=== PATIENT | male | born 1960 | race Caucasian/White ===

== ENCOUNTER 2017-03-16 11:36 | Emergency (ER) | payer OTHER ==
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
--- NOTE | 2017-03-16 12:32 | ED ---
Upper Extremity HPI - General Chief Complaint: Extremity Injury, Upper Stated Complaint: R shoulder pain Time Seen by Provider: 03/16/17 11:46 Source: patient, EMS, RN notes reviewed Mode of arrival: EMS Limitations: no limitations - History of Present Illness Initial Comments: This a 56-year-old male presents emergency Department chief complaint right shoulder pain. Patient fell 2 weeks ago. Patient states that he seen at [facility] was given coating with x-rays were negative. He has not followed up with anybody for this at this time. Patient states that he's had chronic pain in the past and has been on narcotic pain medication. Patient denies any head injury, neck pain or any other complaints at this time. - Related Data Home Medications Medication Instructions Recorded Confirmed Naproxen Sodium [Aleve] 220 mg PO BID PRN 03/16/17 03/16/17 Previous Rx's Medication Instructions Recorded Acetaminophen-Codeine 300-30mg 1 tab PO Q4H PRN #20 tablet 03/16/17 [Tylenol #3] Allergies Allergy/AdvReac Type Severity Reaction Status Date / Time No Known Allergies Allergy Verified 03/16/17 11:47 Review of Systems ROS Statement: Those systems with pertinent positive or pertinent negative responses have been documented in the HPI. ROS Other: All systems not noted in ROS Statement are negative. Past Medical History Past Medical History: Hyperlipidemia, Hypertension, Thyroid Disorder History of Any Multi-Drug Resistant Organisms: None Reported Past Surgical History: Appendectomy, Orthopedic Surgery Additional Past Surgical History / Comment(s): head injury Past Psychological History: No Psychological Hx Reported Smoking Status: Current every day smoker Past Alcohol Use History: None Reported Past Drug Use History: None Reported General Exam Limitations: no limitations General appearance: alert, in no apparent distress Head exam: Present: atraumatic, normocephalic, normal inspection Neck exam: Present: normal inspection, full ROM. Absent: tenderness, meningismus, lymphadenopathy Respiratory exam: Present: normal lung sounds bilaterally. Absent: respiratory distress, wheezes, rales, rhonchi, stridor Cardiovascular Exam: Present: regular rate, normal rhythm, normal heart sounds. Absent: systolic murmur, diastolic murmur, rubs, gallop, clicks Extremities exam: Present: other (Right shoulder patient reports some pain with range of motion, neurovascular intact no obvious deformity there is tenderness over the superior to posterior aspect. Patient's strength is equal bilaterally 5/5) Course Vital Signs 03/16/17 11:37 Temperature 96.9 F L Pulse Rate 52 L Respiratory 18 Rate Blood Pressure 140/75 O2 Sat by Pulse 99 Oximetry Medical Decision Making - Medical Decision Making 56-year-old male present emergency from for right shoulder pain. Patient does have some evidence of arthritis of the acromioclavicular joint. There is no obvious deformity no fracture. Patient is advised that he needs a follow-up with PCP or orthopedics. Return parameters were discussed. Disposition Clinical Impression: Right shoulder injury, Arthritis of right shoulder region Disposition: HOME SELF-CARE Condition: Stable Instructions: Shoulder Pain (ED) Additional Instructions: Please return to the Emergency Department if symptoms worsen or any other concerns. Prescriptions: Acetaminophen-Codeine 300-30mg [Tylenol #3] 1 tab PO Q4H PRN #20 tablet PRN Reason: pain Referrals: None,Stated [Primary Care Provider] - 1-2 days Marshall Rajput DO [STAFF PHYSICIAN] - 1-2 days Reza Purvis DO [Doctor of Osteopathic Medicine] - 1-2 days Time of Disposition: 12:32
[2017-03-16] MEDS ORDERED: IBUPROFEN 600 MG TAB PO STA (12:33)
[2017-03-16] MEDS ORDERED: Acetaminophen-Codeine 300-30mg TAB PO STA (12:33)
[2017-03-16 12:44] VITALS: BP 146/79; PULSE 54; RESP 19; TEMP 97
== END 2017-03-16 12:46 | disposition home or self-care (01) ==
LOC: EC 11:36
DX: M19.011 Primary osteoarthritis, right shoulder (principal); S49.91XD Unspecified injury of right shoulder and upper arm, subsequent encounter; F17.200 Nicotine dependence, unspecified, uncomplicated; Z79.891 Long term (current) use of opiate analgesic; W19.XXXD Unspecified fall, subsequent encounter
CPT/HCPCS: 99284

== ENCOUNTER 2017-04-09 13:00 | Emergency (ER) | payer OTHER ==
[2017-04-09 13:15] VITALS: BP 126/89; PULSE 68; RESP 18; TEMP 98.1
[2017-04-09] MEDS ORDERED: ORPHENADRINE 30 MG/ML 2 ML VIAL IM STA (13:45)
[2017-04-09] MEDS ORDERED: KETOROLAC 30 MG/ML 1 ML VIAL IM STA (13:45)
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
== END 2017-04-09 13:59 | disposition home or self-care (01) ==
LOC: EC 13:00
DX: M19.011 Primary osteoarthritis, right shoulder (principal); F17.200 Nicotine dependence, unspecified, uncomplicated
CPT/HCPCS: 99283; 96372 ×2; J2360; J1885

== ENCOUNTER → 2017-07-14 | Outpatient (CLI) | payer OTHER ==
--- NOTE | 2017-07-14 12:00 | MR ---
MRI CERVICAL SPINE: CLINICAL HISTORY: Chronic cervical radiculopathy and neck pain per order. Headaches with pain and tin gling sensation for 5 months and neck causing pain or weakness into right arm and fingers per patient . TECHNIQUE: Multiplanar, multisequence imaging of the cervical spine is performed without IV contrast. COMPARISON: MRI cervical spine dated January 05, 2014. FINDINGS: Exam is suboptimal as there is motion artifact degradation present. Sagittal images of the cervical spine show the craniocervical junction to remain within normal limits. The cervical and upp er thoracic spinal cord is normal in course, caliber, and signal. Vertebral alignment is stable and satisfactory. The vertebral body and intravertebral disk heights remain normal. Small posterior disc herniations are redemonstrated on sagittal images C3-C4 through C5-C6 level mildly effacing anterior thecal sac without significant interval change. There is mild anterior spurring lower cervical level s redemonstrated. The bone marrow signal intensity is within normal limits. Axial images show slightly more prominent blooming artifact making difficult to accurately characteri ze amount of neural foraminal narrowing. Axial images at C2-C3 level shows new left-sided uncovertebral facet degenerative change causing mild left-sided neural foraminal narrowing. Axial images at C3-C4 level show uncovertebral facet degenerative changes bilaterally with broad-base d right paracentral disc protrusion mildly effacing anterolateral thecal sac, there is likely moderat e bilateral neural foraminal narrowing at this level identified. Difficult to exclude some progressio n from prior study. Axial images at C4-C5 level small broad-based posterior disc protrusion mildly effacing anterior thec al sac, with some uncovertebral facet degenerative changes bilaterally causing mild to moderate bilat eral neural foraminal narrowing. No significant change from prior study is felt present. Axial images at C5-C6 level redemonstrate broad-based left paracentral disc protrusion with posterior spurring and uncovertebral facet degenerative changes bilaterally. There is effacement of the johanna lateral thecal sac redemonstrated. Moderate left-sided neural foraminal narrowing and mild right-side d neural foraminal narrowing there is felt present. Prior. Axial images at C6-C7 and C7-T1 levels are felt within normal limits IMPRESSION: Suboptimal study, multilevel degenerative changes are redemonstrated, some progression in findings upper cervical levels from most recent prior MRI is likely present. Most prominent findings remain present at C5-C6 level without significant interval change. Further details are noted as disc ussed above.
== END | disposition home or self-care (01) ==
LOC: RADMRIMAIN 11:05
PROVIDERS: ATTEND Family Medicine
DX: M50.11 Cervical disc disorder with radiculopathy, high cervical region (principal); M99.71 Connective tissue and disc stenosis of intervertebral foramina of cervical region; M47.22 Other spondylosis with radiculopathy, cervical region
CPT/HCPCS: 72141

== ENCOUNTER → 2017-08-18 | Outpatient (CLI) | payer OTHER ==
[2017-08-17 13:30] VITALS: BMI 30.7
[2017-08-18 12:59] VITALS: BP 124/84; PULSE 58; RESP 18
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
== END | disposition home or self-care (01) ==
LOC: PNWHC3 12:10
PROVIDERS: ATTEND Specialist
DX: G89.29 Other chronic pain (principal); M51.36 Other intervertebral disc degeneration, lumbar region; M47.816 Spondylosis without myelopathy or radiculopathy, lumbar region; M46.86 Other specified inflammatory spondylopathies, lumbar region; M47.812 Spondylosis without myelopathy or radiculopathy, cervical region; M46.82 Other specified inflammatory spondylopathies, cervical region; F17.200 Nicotine dependence, unspecified, uncomplicated; Z79.1 Long term (current) use of non-steroidal anti-inflammatories (NSAID); Z79.899 Other long term (current) drug therapy
CPT/HCPCS: 99211

== ENCOUNTER 2017-09-20 09:40 | Day surgery (SDC) | payer OTHER ==
[2017-09-15 09:23] VITALS: BMI 28.8
[~2017-09-20 09:40] MED LIST: LACTATED RINGERS 1,000 ML IV SCH
[2017-09-20] MEDS ORDERED: LIDOCAINE 1% 20 ML VIAL (10MG/ML) FOR IV START INTRADERMA ONE (10:04)
[2017-09-20 10:07] VITALS: RESP 16; TEMP 97.2
--- NOTE | 2017-09-20 10:31 | P.PCN ---
Date of Procedure: 09/20/17 Procedure(s) Performed: PREOPERATIVE DIAGNOSIS : 1- Lumbar spondylosis with Facet Arthropathy without myelopathy . 2- Lumber degenerative disc disease. 3-cervical spondylosis with cervical facet arthropathy without myelopathy 4-cervical degenerative disc disease POSTOPERATIVE DIAGNOSIS:: Same as preoperative diagnosis PROCEDURE: Diagnostic bilateral L3 -4 , L4 -5 , and L5-S1 medial branch block under fluoroscopy ANESTHESIA: Local with 1% lidocaine 6 ml , moderate sedation with intravenous Versed 2 mg and Fentanyl 100 mcg. EBL: Minimal COMPLICATION: None. IV FLUIDS: 100 mL of normal saline. PROCEDURE INDICATION: Chronic low back pain secondary to Facet arthropathy unresponsive to conservative treatment. PROCEDURE DESCRIPTION: the patient was seen and identified in the preop holding area , risks and benefits and possible complications of the procedure and alternative were discussed with the patient, and the patient agreed to proceed with the procedure and signed the consent IV was started and vital signs monitored during the procedure and fluoroscopy was used to maximize the benefit and accuracy of the needle placement, and sedation was given to decrease patient anxiety, patient was taken to the procedure room and placed in prone position vital signs monitored in the back prepped with chlorhexidine X3 then under strict sterile technique using a right oblique fluoroscopy ,the junction of the transverse process and the superior articulating process of the right L3- 4 , L4- 5, and L5-S1 vertebra which corresponding to the fluoroscopy image of the eye of the Naldo dog on the block side for the medial branches and subsequently , after local infiltration of skin and subcu tissuies with lidocaine 1% one mL at each level ,then 22- gauge Quincke-type needles , 3 needle was used , each one of them placed at the junction of the base of the transverse process and the superior articular process at the appropriate level, and the needle was advanced until the periosteum contacted, needle placement confirmed with AP oblique and lateral view and after appropriate needle placement confirmed, and after negative aspiration for heme and CSF and there was no paresthesia 1-1/2 mL of Marcaine 0.5% mixed with 20 mg Kenalog , then half mL injected at each level after negative aspiration the needle subsequently removed and the same procedure repeated for the left side at left side at L3-4, L4- 5 and L5-S1 levels. At the end of the procedure and the needles removed and a bandage applied after the skin was cleaned the cleaning solution patient taken to recovery room in stable condition and monitors in the recovery room for 20-30 minutes and discharged home in stable condition after discharge criteria met and patient will follow up with the pain clinic in 2-4 weeks
[2017-09-20 10:50] VITALS: BP 140/79; PULSE 53
[2017-09-20] MEDS ORDERED: IV FLUID CONTINUATION 1,000 ML IV ONE (10:50)
--- NOTE | 2017-09-20 11:03 | FL ---
EXAMINATION TYPE: FL guided pain mgmt statistic DATE OF EXAM: 09/20/2017 CLINICAL HISTORY: Back pain TECHNIQUE: Fluoroscopy. COMPARISON: None. FINDINGS/IMPRESSION: Fluoroscopic guidance was provided during procedure performed by Dr. Garnett. A total of 13 seconds of fluoroscopic time was utilized during the procedure and 4 spot images was a cquired demonstrating localization of the lumbar spine for bilateral facet.
== END 2017-09-20 11:14 | disposition home or self-care (01) ==
LOC: ORPAIN 09:40
PROVIDERS: ATTEND Specialist
DX: G89.29 Other chronic pain (principal); M51.36 Other intervertebral disc degeneration, lumbar region; M47.816 Spondylosis without myelopathy or radiculopathy, lumbar region; M47.812 Spondylosis without myelopathy or radiculopathy, cervical region; E03.9 Hypothyroidism, unspecified; I48.91 Unspecified atrial fibrillation
CPT/HCPCS: 64493; 64494; 64495; J2250; J3301; J3010; 99152

== ENCOUNTER 2018-04-30 12:18 | Emergency (ER) | payer OTHER ==
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
[2018-04-30 17:01] LABS: Basophils % (A) 1 %; Eosinophils # (A) 0.3 k/uL (0-0.7); Eosinophils % (A) 3 %; HGB 14.1 gm/dL (13.0-17.5); Lymphocytes # (A) 2.5 k/uL (1.0-4.8); Lymphocytes % (A) 29 %; MCH 29.8 pg (25.0-35.0); MCHC 32.8 g/dL (31.0-37.0); MCV 91.1 fL (80.0-100.0); Mean Platelet Volume 7.4; Monocytes # (A) 0.4 k/uL (0-1.0); Monocytes % (A) 4 %; Neutrophils # (A) 5.3 k/uL (1.3-7.7); Neutrophils % (A) 61 %; Platelet Count 454 k/uL (150-450); RBC 4.72 m/uL (4.30-5.90); RDW 13.7 % (11.5-15.5); WBC 8.7 k/uL (3.8-10.6)
[2018-04-30 17:23] LABS: Albumin 4.3 g/dL (3.5-5.0); Calcium 9.9 mg/dL (8.4-10.2); Potassium 4.7 mmol/L (3.5-5.1); Total Bilirubin 0.4 mg/dL (0.2-1.3); Total Protein 7.4 g/dL (6.3-8.2)
[2018-04-30 18:40] LABS: Amphetamine Screen,Urine Not Detected (NotDetected); Barbiturate Screen,Urine Not Detected (NotDetected); Benzodiazepines Screen,Urine Not Detected (NotDetected); Cocaine Screen,Urine Detected (NotDetected); Methadone Screen, Urine Not Detected (NotDetected); Opiate Screen,Urine Not Detected (NotDetected); Oxycodone Screen, Urine Not Detected (NotDetected); Phencyclidine Screen,Urine Not Detected (NotDetected); Tricyclic Antidepressant,Urine Not Detected (NotDetected); Urn Cannabinoid Scrn Detected (NotDetected)
[2018-05-02] MEDS ORDERED: ACETAMINOPHEN TAB 500 MG TAB PO STA (07:07)
[2018-05-02 08:44] VITALS: TEMP 98.7
[2018-05-02 15:48] VITALS: BP 140/76; PULSE 86; RESP 16
== END 2018-05-02 15:48 ==
LOC: EC 12:18
DX: R45.850 Homicidal ideations (principal); R45.851 Suicidal ideations; R45.1 Restlessness and agitation; R45.4 Irritability and anger; F17.200 Nicotine dependence, unspecified, uncomplicated
CPT/HCPCS: 36415; 80053; 80306; 82075; 85025; 99285

== ENCOUNTER 2018-11-29 21:18 | Emergency (ER) | payer OTHER ==
[2018-11-29 21:34] VITALS: BP 120/77; PULSE 60; RESP 18; TEMP 98.5
[2018-11-29] MEDS ORDERED: DIPH,PERTUS(ACELL)TETVAC-LF 0.5 ML VIAL IM ONE (21:37)
--- NOTE | 2018-11-29 22:01 | XR ---
EXAMINATION TYPE: XR elbow complete LT DATE OF EXAM: 11/29/2018 COMPARISON: NONE HISTORY: Elbow pain TECHNIQUE: 3 views FINDINGS: Elbow joint spaces appear normal. I see no fracture nor dislocation. There is no sign of el bow joint effusion. IMPRESSION: Negative left elbow exam.
--- NOTE | 2018-11-29 22:02 | XR ---
EXAMINATION TYPE: XR Hip Complete LT DATE OF EXAM: 11/29/2018 COMPARISON: NONE HISTORY: Hip pain TECHNIQUE: 2 views FINDINGS: I see no fracture nor dislocation. Hip joint spaces fairly normal. There is no sign of hip dysplasia. Sacroiliac joint appears normal. IMPRESSION: Normal left hip exam.
--- NOTE | 2018-11-29 22:02 | XR ---
EXAMINATION TYPE: XR knee complete LT DATE OF EXAM: 11/29/2018 COMPARISON: NONE HISTORY: Knee pain TECHNIQUE: 3 views FINDINGS: I see no fracture nor dislocation. Joint spaces are normal. There is no sign of joint effus ion. IMPRESSION: Negative left knee exam.
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
== END 2018-11-29 22:31 | disposition home or self-care (01) ==
LOC: EC 21:18
DX: S80.212A Abrasion, left knee, initial encounter (principal); S50.312A Abrasion of left elbow, initial encounter; M25.552 Pain in left hip; F17.200 Nicotine dependence, unspecified, uncomplicated; Z98.890 Other specified postprocedural states; Z23 Encounter for immunization; V18.4XXA Pedal cycle driver injured in noncollision transport accident in traffic accident, initial encounter; Y93.55 Activity, bike riding; Y92.410 Unspecified street and highway as the place of occurrence of the external cause
CPT/HCPCS: 73502; 90471; 90715; 99283

== ENCOUNTER 2019-02-01 22:56 | Emergency (ER) | payer OTHER ==
[2019-02-01 23:28] VITALS: RESP 18
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
[2019-02-02 03:27] LABS: Basophils # (A) 0.1 k/uL (0-0.2); Basophils % (A) 1 %; Eosinophils # (A) 0.3 k/uL (0-0.7); Eosinophils % (A) 3 %; HCT 37.5 % (39.0-53.0); HGB 12.7 gm/dL (13.0-17.5); Lymphocytes # (A) 4.2 k/uL (1.0-4.8); Lymphocytes % (A) 40 %; MCH 30.7 pg (25.0-35.0); MCHC 33.7 g/dL (31.0-37.0); MCV 90.9 fL (80.0-100.0); Mean Platelet Volume 7.3; Monocytes # (A) 0.5 k/uL (0-1.0); Monocytes % (A) 4 %; Neutrophils # (A) 5.3 k/uL (1.3-7.7); Neutrophils % (A) 50 %; Platelet Count 294 k/uL (150-450); RBC 4.13 m/uL (4.30-5.90); RDW 14.2 % (11.5-15.5); WBC 10.5 k/uL (3.8-10.6)
[2019-02-02 03:39] LABS: Amphetamine Screen,Urine Not Detected (NotDetected); Barbiturate Screen,Urine Not Detected (NotDetected); Benzodiazepines Screen,Urine Not Detected (NotDetected); Cocaine Screen,Urine Detected (NotDetected); Methadone Screen, Urine Not Detected (NotDetected); Opiate Screen,Urine Not Detected (NotDetected); Oxycodone Screen, Urine Not Detected (NotDetected); Phencyclidine Screen,Urine Not Detected (NotDetected); Tricyclic Antidepressant,Urine Not Detected (NotDetected); Urn Cannabinoid Scrn Detected (NotDetected)
[2019-02-02 03:59] LABS: Albumin 3.9 g/dL (3.5-5.0); Calcium 9.2 mg/dL (8.4-10.2); Total Bilirubin 0.3 mg/dL (0.2-1.3); Total Protein 6.5 g/dL (6.3-8.2)
[2019-02-02 04:25] LABS: Potassium 4.3 mmol/L (3.5-5.1)
[2019-02-02 07:01] VITALS: BP 126/82; PULSE 51; TEMP 98.7
== END 2019-02-02 10:23 ==
LOC: EC 22:56
DX: F39 Unspecified mood [affective] disorder (principal); F32.9 Major depressive disorder, single episode, unspecified; R45.851 Suicidal ideations; F17.200 Nicotine dependence, unspecified, uncomplicated; Z87.820 Personal history of traumatic brain injury
CPT/HCPCS: 36415; 80053; 80306; 82075; 85025; 99285

== ENCOUNTER 2019-03-24 23:56 | Inpatient (IN) | payer MEDICAID, OTHER ==
[2019-03-25 01:22] LABS: Amphetamine Screen,Urine Not Detected (NotDetected); Barbiturate Screen,Urine Not Detected (NotDetected); Benzodiazepines Screen,Urine Not Detected (NotDetected); Cocaine Screen,Urine Not Detected (NotDetected); Methadone Screen, Urine Not Detected (NotDetected); Opiate Screen,Urine Not Detected (NotDetected); Oxycodone Screen, Urine Not Detected (NotDetected); Phencyclidine Screen,Urine Not Detected (NotDetected); Tricyclic Antidepressant,Urine Not Detected (NotDetected); Urn Cannabinoid Scrn Detected (NotDetected)
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
[2019-03-25] MEDS ORDERED: ZIPRASIDONE 20 MG VIAL IM PRN (03:42)
[2019-03-25] MEDS ORDERED: MAG HYDROX/AL HYDROX/SIMETH 30 ML CUP PO PRN (03:42)
[2019-03-25] MEDS ORDERED: MAGNESIUM HYDROXIDE 2,400 MG/10 ML CUP PO PRN (03:42)
[2019-03-25 04:44] LABS: Appearance,Urine Clear (Clear); Bilirubin,Urine Negative (Negative); Blood,Urine Small (Negative); Color,Urine Yellow; Glucose,Urine (UA) Negative (Negative); Ketones,Urine Negative (Negative); Leukocyte Esterase,Urine Negative (Negative); Mucus,Urine Rare /hpf; Nitrite,Urine Negative (Negative); PH, Urine 5.5 (5.0-8.0); Protein,Urine Negative (Negative); RBC,Urine 10 /hpf (0-5); Specific Gravity,Urine 1.024 (1.001-1.035); Squamous Epithelial Cell,Urine <1 /hpf (0-4); Urobilinogen,Urine <2.0 mg/dL (<2.0); WBC,Urine <1 /hpf (0-5)
[2019-03-25 05:22] VITALS: BMI 25.1
[2019-03-25] MEDS: NICOTINE 14MG/24HR PATCH TRANSDERM SCH (08:44)
[2019-03-25 09:29] LABS: Basophils # (A) 0.1 k/uL (0-0.2); Basophils % (A) 1 %; Eosinophils # (A) 0.2 k/uL (0-0.7); Eosinophils % (A) 2 %; HCT 40.1 % (39.0-53.0); HGB 13.4 gm/dL (13.0-17.5); Lymphocytes # (A) 3.3 k/uL (1.0-4.8); Lymphocytes % (A) 35 %; MCHC 33.5 g/dL (31.0-37.0); MCV 92.8 fL (80.0-100.0); Monocytes # (A) 0.4 k/uL (0-1.0); Monocytes % (A) 4 %; Neutrophils # (A) 5.6 k/uL (1.3-7.7); Neutrophils % (A) 58 %; Platelet Count 372 k/uL (150-450); RBC 4.32 m/uL (4.30-5.90); RDW 12.8 % (11.5-15.5); WBC 9.7 k/uL (3.8-10.6)
[2019-03-25 09:48] LABS: Albumin 4.3 g/dL (3.5-5.0); Bilirubin, Delta 0.1 mg/dL (0.0-0.2); Bilirubin,Unconjugated 0.5 mg/dL (0.0-1.1); Calcium 9.4 mg/dL (8.4-10.2); Potassium 3.9 mmol/L (3.5-5.1); Total Bilirubin 0.6 mg/dL (0.2-1.3); Total Protein 7.2 g/dL (6.3-8.2)
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
[2019-03-25] MEDS ORDERED: BENZOCAINE/MENTHOL LOZENG 1 EACH LOZENGE MUCOUS MEM PRN (14:58)
[2019-03-25] MEDS: LORazepam 1 MG TAB PO PRN (16:11)
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
[2019-03-25] MEDS: ESCITALOPRAM 10 MG TAB PO SCH (18:00)
[2019-03-25] MEDS: MELATONIN 3 MG TABLET PO SCH (20:18)
[2019-03-25 20:27] LABS: Hemoglobin A1C 5.9 % (4.0-6.0)
[2019-03-26] MEDS: LEVOTHYROXINE 100 MCG TAB PO SCH (06:32)
[2019-03-26] MEDS: NICOTINE 14MG/24HR PATCH TRANSDERM SCH (09:08)
[2019-03-26] MEDS: ESCITALOPRAM 10 MG TAB PO SCH (09:08)
--- NOTE | 2019-03-26 15:45 | P.PN ---
Progress Note - Text Progress Note Date: 03/26/19 Over history: Patient reports he slept well last night and he did not have any carryover like he has had with the Seroquel with the melatonin. Did sign a form yesterday regarding wanting to be discharged. He does not voice any adverse psychotropic medication side effects. Mental status exam: He is alert and cooperative with the interview. His speech is fluent, not rapid or pressured. His mood seems to be stable. He denies any thoughts of harm to self or others. No evidence of psychosis or agitation. Plan: Patient will be maintained on current psychotropic medication regimen. Continue to monitor for any medication side effects and monitor regarding his response to treatment.
[2019-03-26] MEDS: LORazepam 1 MG TAB PO PRN (20:15)
[2019-03-26] MEDS: MELATONIN 3 MG TABLET PO SCH (20:15)
[2019-03-26] MEDS: ACETAMINOPHEN TAB 325 MG TAB PO PRN (20:15)
[2019-03-27] MEDS: LEVOTHYROXINE 100 MCG TAB PO SCH (06:03)
[2019-03-27] MEDS: NICOTINE 14MG/24HR PATCH TRANSDERM SCH (07:54)
[2019-03-27] MEDS: ESCITALOPRAM 10 MG TAB PO SCH (07:54)
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
--- NOTE | 2019-03-27 16:54 | US ---
EXAMINATION TYPE: US thyroid st tissue head/neck DATE OF EXAM: 03/27/2019 COMPARISON: NONE CLINICAL HISTORY: enlarged thyroid gland. GLAND SIZE: Right Lobe: 4.1 x 1.5 x 1.6 cm Overall Parenchyma: heterogenous Left Lobe: 3.7 x 1.4 x 1.1 cm Overall Parenchyma: heterogeneous Isthmus Thickness: 0.2 cm NODULES RIGHT: # of nodules measured on right: 0 LEFT: # of nodules measured on left: 0 ISTHMUS: # of nodules measured in the isthmus: 0 Bilateral neck scanned, no evidence of lymphadenopathy. IMPRESSION: There is heterogeneity in both thyroid lobes without a discrete or dominant mass. Thyroid gland not s ignificantly enlarged.
[2019-03-27] MEDS: LORazepam 1 MG TAB PO PRN (17:07)
[2019-03-27] MEDS: MELATONIN 3 MG TABLET PO SCH (21:09)
[2019-03-27] MEDS: ACETAMINOPHEN TAB 325 MG TAB PO PRN (21:10)
[2019-03-28 07:06] VITALS: BP 112/64; PULSE 51; RESP 14; TEMP 98
[2019-03-28] MEDS: NICOTINE 14MG/24HR PATCH TRANSDERM SCH (09:11)
[2019-03-28] MEDS: ESCITALOPRAM 10 MG TAB PO SCH (09:12)
[2019-03-28] MEDS: ACETAMINOPHEN TAB 325 MG TAB PO PRN ×2 (09:12→12:59)
[2019-03-28] MEDS: LORazepam 1 MG TAB PO PRN (09:12)
[2019-03-28] MEDS: LEVOTHYROXINE 100 MCG TAB PO SCH (09:12)
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
== END 2019-03-28 14:14 | disposition home or self-care (01) | DRG 880 ==
LOC: EC 23:56 → 3MHU 03-25 03:30
PROVIDERS: ADMIT Psychiatry & Neurology Psychiatry; ATTEND Psychiatry & Neurology Psychiatry
DX: F41.1 Generalized anxiety disorder (principal); E78.5 Hyperlipidemia, unspecified; F17.200 Nicotine dependence, unspecified, uncomplicated; I10 Essential (primary) hypertension; K21.9 Gastro-esophageal reflux disease without esophagitis; G89.29 Other chronic pain; E07.9 Disorder of thyroid, unspecified; M79.604 Pain in right leg; F32.9 Major depressive disorder, single episode, unspecified; Z79.899 Other long term (current) drug therapy; Z87.81 Personal history of (healed) traumatic fracture; Z90.49 Acquired absence of other specified parts of digestive tract
CPT/HCPCS: 76536; 80053; 80061; 80306; 81001; 82075; 82248; 83036; 84439; 84443; 85025; 99285

== ENCOUNTER 2019-08-02 23:32 | Emergency (ER) | payer OTHER ==
[2019-08-02 23:41] VITALS: BP 122/85; PULSE 73; RESP 18; TEMP 97.8
[2019-08-02] MEDS ORDERED: HYDROcodone/APAP 10-325MG 1 EACH TAB PO ONE (23:53)
[2019-08-02] MEDS ORDERED: LIDOCAINE 5% PATCH TOPICAL STA (23:53)
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
== END 2019-08-03 01:29 | disposition home or self-care (01) ==
LOC: EC 23:32
DX: M54.9 Dorsalgia, unspecified (principal); Z59.0 Homelessness; F17.200 Nicotine dependence, unspecified, uncomplicated
CPT/HCPCS: 99283

== ENCOUNTER 2019-08-08 22:10 | Emergency (ER) | payer OTHER ==
[2019-08-08 22:44] VITALS: BP 121/80; PULSE 68; RESP 20; TEMP 98.3
[2019-08-08] MEDS ORDERED: HYDROcodone/APAP 7.5-325MG 1 EACH TAB PO ONE (23:42)
[2019-08-08] MEDS ORDERED: KETOROLAC 30 MG/ML 1 ML VIAL IM STA (23:42)
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
== END 2019-08-09 00:10 | disposition home or self-care (01) ==
LOC: EC 22:10
DX: M54.9 Dorsalgia, unspecified (principal); G89.29 Other chronic pain; F17.200 Nicotine dependence, unspecified, uncomplicated; Z87.828 Personal history of other (healed) physical injury and trauma; Z98.890 Other specified postprocedural states
CPT/HCPCS: 96372; 99283; J1885

== ENCOUNTER 2019-09-05 00:13 | Emergency (ER) | payer OTHER ==
[2019-09-05 00:22] VITALS: BP 120/77; PULSE 80; RESP 18; TEMP 97.5
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
== END 2019-09-05 04:56 | disposition home or self-care (01) ==
LOC: EC 00:13
DX: F31.9 Bipolar disorder, unspecified (principal); F17.200 Nicotine dependence, unspecified, uncomplicated
CPT/HCPCS: 36415; 80053; 80306; 81001; 82075; 85025; 99284; 99285

== ENCOUNTER 2019-09-05 16:44 | Emergency (ER) | payer OTHER ==
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
[2019-09-05 18:52] LABS: Appearance,Urine Clear (Clear); Bilirubin,Urine Negative (Negative); Blood,Urine Small (Negative); Color,Urine Yellow; Glucose,Urine (UA) Negative (Negative); Ketones,Urine Negative (Negative); Leukocyte Esterase,Urine Small (Negative); Nitrite,Urine Negative (Negative); Protein,Urine Negative (Negative); RBC,Urine 11 /hpf (0-5); Specific Gravity,Urine 1.025 (1.001-1.035); Squamous Epithelial Cell,Urine <1 /hpf (0-4); Urobilinogen,Urine <2.0 mg/dL (<2.0); WBC,Urine 4 /hpf (0-5)
[2019-09-05 19:03] LABS: Amphetamine Screen,Urine Not Detected (NotDetected); Barbiturate Screen,Urine Not Detected (NotDetected); Benzodiazepines Screen,Urine Not Detected (NotDetected); Cocaine Screen,Urine Detected (NotDetected); Methadone Screen, Urine Not Detected (NotDetected); Opiate Screen,Urine Detected (NotDetected); Oxycodone Screen, Urine Not Detected (NotDetected); Phencyclidine Screen,Urine Not Detected (NotDetected); Tricyclic Antidepressant,Urine Not Detected (NotDetected); Urn Cannabinoid Scrn Detected (NotDetected)
[2019-09-05 21:32] LABS: Basophils # (A) 0.1 k/uL (0-0.2); Basophils % (A) 1 %; Eosinophils # (A) 0.3 k/uL (0-0.7); Eosinophils % (A) 3 %; HCT 36.3 % (39.0-53.0); Lymphocytes % (A) 40 %; MCH 29.8 pg (25.0-35.0); MCV 90.4 fL (80.0-100.0); Mean Platelet Volume 7.6; Monocytes # (A) 0.5 k/uL (0-1.0); Monocytes % (A) 6 %; Neutrophils # (A) 4.9 k/uL (1.3-7.7); Neutrophils % (A) 49 %; Platelet Count 323 k/uL (150-450); RBC 4.02 m/uL (4.30-5.90); RDW 13.1 % (11.5-15.5); WBC 9.9 k/uL (3.8-10.6)
[2019-09-05 21:36] LABS: ALT 17 U/L (4-49); AST 21 U/L (17-59); African American GFR (CKD) >90 (>60 ml/min/1.73 sqM); Albumin 3.7 g/dL (3.5-5.0); Alkaline Phosphatase 51 U/L (38-126); Anion Gap 4 mmol/L; Blood Urea Nitrogen 24 mg/dL (9-20); Calcium 8.7 mg/dL (8.4-10.2); Carbon Dioxide 26 mmol/L (22-30); Chloride 106 mmol/L (98-107); Glucose 106 mg/dL (74-99); Non-African American GFR(CKD) 79 (>60 ml/min/1.73 sqM); Potassium 4.1 mmol/L (3.5-5.1); Sodium 136 mmol/L (137-145); Total Bilirubin 0.2 mg/dL (0.2-1.3); Total Protein 6.5 g/dL (6.3-8.2)
[2019-09-05 23:24] VITALS: RESP 18
[2019-09-06 01:52] VITALS: TEMP 97.6
[2019-09-06] MEDS ORDERED: NAPROXEN 250 MG TAB PO STA (04:47)
[2019-09-06 07:39] VITALS: BP 120/67; PULSE 68
== END 2019-09-06 07:46 ==
LOC: EC 16:44
DX: F32.9 Major depressive disorder, single episode, unspecified (principal); R45.851 Suicidal ideations; F17.200 Nicotine dependence, unspecified, uncomplicated
CPT/HCPCS: 36415; 80053; 80306; 81001; 85025; 99285

== ENCOUNTER 2020-12-07 20:17 | Emergency (ER) | payer OTHER ==
[2020-12-07 20:27] VITALS: BP 128/97; PULSE 60; RESP 18; TEMP 97.9
[2020-12-07] MEDS ORDERED: KETOROLAC 15 MG/ML 1 ML VIAL IM STA (20:38)
[2020-12-07 21:26] LABS: Appearance,Urine Clear (Clear); Bilirubin,Urine 1+ (Negative); Blood,Urine Trace (Negative); Color,Urine Yellow; Glucose,Urine (UA) Negative (Negative); Ketones,Urine Trace (Negative); Leukocyte Esterase,Urine Negative (Negative); Mucus,Urine Occasional /hpf; Nitrite,Urine Negative (Negative); PH, Urine 5.5 (5.0-8.0); Protein,Urine 1+ (Negative); RBC,Urine 7 /hpf (0-5); Specific Gravity,Urine 1.035 (1.001-1.035); Squamous Epithelial Cell,Urine 1 /hpf (0-4); WBC,Urine 2 /hpf (0-5)
[2020-12-07 21:40] LABS: Amphetamine Screen,Urine Not Detected (NotDetected); Benzodiazepines Screen,Urine Not Detected (NotDetected); Cocaine Screen,Urine Not Detected (NotDetected); Methadone Screen, Urine Not Detected (NotDetected); Opiate Screen,Urine Not Detected (NotDetected); Phencyclidine Screen,Urine Not Detected (NotDetected); Tricyclic Antidepressant,Urine Not Detected (NotDetected); Urn Cannabinoid Scrn Detected (NotDetected)
[2020-12-07 21:41] LABS: Barbiturate Screen,Urine Not Detected (NotDetected); Oxycodone Screen, Urine Not Detected (NotDetected)
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
== END 2020-12-07 22:30 | disposition home or self-care (01) ==
LOC: EC 20:17
DX: R45.851 Suicidal ideations (principal); M54.9 Dorsalgia, unspecified; K21.9 Gastro-esophageal reflux disease without esophagitis; F41.9 Anxiety disorder, unspecified; F25.9 Schizoaffective disorder, unspecified; F17.200 Nicotine dependence, unspecified, uncomplicated; F12.90 Cannabis use, unspecified, uncomplicated
CPT/HCPCS: 82075; 81001; 80306; 99285; 96372; J1885

== ENCOUNTER 2021-07-02 21:39 | Emergency (ER) | payer OTHER ==
[2021-07-02 21:49] VITALS: TEMP 98.2
[2021-07-02] MEDS ORDERED: ACETAMINOPHEN TAB 500 MG TAB PO STA (22:30)
[2021-07-02] MEDS ORDERED: KETOROLAC 15 MG/ML 1 ML VIAL IVP STA (22:30)
[2021-07-02] MEDS ORDERED: ORPHENADRINE 30 MG/ML 2 ML VIAL IM STA (22:30)
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
--- NOTE | 2021-07-02 23:40 | XR ---
EXAMINATION TYPE: XR lumbosacral spine min 4V DATE OF EXAM: 07/02/2021 COMPARISON: NONE HISTORY: Low back pain TECHNIQUE: 5 views FINDINGS: Vertebra have fairly normal alignment. There is no significant disc space narrowing. Menagerie Caretaker ior elements are intact. There is no compression fracture. Sacroiliac joints are intact. IMPRESSION: Negative lumbar spine exam. No fracture. Atheromatous aorta.
[2021-07-03 00:10] VITALS: BP 136/74; PULSE 88; RESP 15
== END 2021-07-03 00:09 | disposition home or self-care (01) ==
LOC: EC 21:39
DX: M54.59 Other low back pain (principal); K21.9 Gastro-esophageal reflux disease without esophagitis; E07.9 Disorder of thyroid, unspecified; F41.9 Anxiety disorder, unspecified; F31.9 Bipolar disorder, unspecified; F25.9 Schizoaffective disorder, unspecified; F17.200 Nicotine dependence, unspecified, uncomplicated; F12.90 Cannabis use, unspecified, uncomplicated; Z90.49 Acquired absence of other specified parts of digestive tract
CPT/HCPCS: 99283; 96374; 96372; 72110; J2360; J1885

== ENCOUNTER 2022-03-06 05:24 | Emergency (ER) | payer OTHER ==
[2022-03-06 05:34] VITALS: BP 129/80; PULSE 69; RESP 16; TEMP 97.7
[2022-03-06] MEDS ORDERED: KETOROLAC 15 MG/ML 1 ML VIAL IM STA (05:40)
[2022-03-06] MEDS ORDERED: MORPHINE SULFATE 4 MG/ML SYRINGE IM STA (05:40)
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
--- NOTE | 2022-03-06 06:02 | XR ---
EXAMINATION TYPE: XR lumbar spine 2 or 3V DATE OF EXAM: 03/06/2022 COMPARISON: 07/02/2021 HISTORY: Back pain TECHNIQUE: 3 views FINDINGS: Lumbar vertebrae are normal alignment. There is narrowing at L4-5 disc there is spurring of the endplates. No compression fracture. Posterior elements are intact and sacroiliac joints are inta ct. IMPRESSION: Spondylosis at L4-5. No fracture seen. There is progression of disc disease at L4-5 alexandra red to old exam.
== END 2022-03-06 06:50 | disposition home or self-care (01) ==
LOC: EC 05:24
DX: M54.9 Dorsalgia, unspecified (principal); K21.9 Gastro-esophageal reflux disease without esophagitis; E07.9 Disorder of thyroid, unspecified; F41.9 Anxiety disorder, unspecified; F31.9 Bipolar disorder, unspecified; F17.200 Nicotine dependence, unspecified, uncomplicated; F12.90 Cannabis use, unspecified, uncomplicated; Z79.899 Other long term (current) drug therapy
CPT/HCPCS: 72100; 99283; 96372 ×2; J2270; J1885

== ENCOUNTER 2022-03-08 05:25 | Emergency (ER) | payer OTHER ==
[2022-03-08 05:40] VITALS: BP 133/83; PULSE 65; RESP 18; TEMP 97.6
[2022-03-08] MEDS ORDERED: KETOROLAC 15 MG/ML 1 ML VIAL IM STA (07:26)
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
== END 2022-03-08 07:45 | disposition home or self-care (01) ==
LOC: EC 05:25
DX: M54.9 Dorsalgia, unspecified (principal); K21.9 Gastro-esophageal reflux disease without esophagitis; E07.9 Disorder of thyroid, unspecified; F41.9 Anxiety disorder, unspecified; F31.9 Bipolar disorder, unspecified; F17.200 Nicotine dependence, unspecified, uncomplicated; F12.90 Cannabis use, unspecified, uncomplicated; Z79.899 Other long term (current) drug therapy
CPT/HCPCS: 99283; 96372; J1885

== ENCOUNTER 2022-03-12 17:59 | Emergency (ER) | payer OTHER, BC, MEDICARE ==
[2022-03-12 18:08] VITALS: RESP 18
[2022-03-12] MEDS ORDERED: KETOROLAC 15 MG/ML 1 ML VIAL IM STA (18:53)
[2022-03-12] MEDS ORDERED: predniSONE 50 MG TAB PO STA (18:53)
[2022-03-12] MEDS ORDERED: ORPHENADRINE 30 MG/ML 2 ML VIAL IM STA (18:53)
[2022-03-12 19:13] LABS: Appearance,Urine Clear (Clear); Bilirubin,Urine Negative (Negative); Blood,Urine Small (Negative); Color,Urine Yellow; Glucose,Urine (UA) Negative (Negative); Ketones,Urine Negative (Negative); Leukocyte Esterase,Urine Negative (Negative); Nitrite,Urine Negative (Negative); PH, Urine 6.5 (5.0-8.0); Protein,Urine Negative (Negative); RBC,Urine 6 /hpf (0-5); Specific Gravity,Urine 1.014 (1.001-1.035); Squamous Epithelial Cell,Urine <1 /hpf (0-4); Urobilinogen,Urine <2.0 mg/dL (<2.0)
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
[2022-03-12 20:43] VITALS: BP 107/63; PULSE 60; TEMP 98
== END 2022-03-12 20:50 | disposition home or self-care (01) ==
LOC: EC 17:59
DX: M62.830 Muscle spasm of back (principal); G89.29 Other chronic pain; M54.50 Low back pain, unspecified; F17.200 Nicotine dependence, unspecified, uncomplicated
CPT/HCPCS: 81001; 99284; 96372; J2360; J1885; J7512

== ENCOUNTER 2022-03-15 11:50 | Inpatient (IN) | payer BC, MEDICAID, MEDICARE, OTHER ==
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
[2022-03-15 12:44] LABS: Amphetamine Screen,Urine Not Detected (NotDetected); Barbiturate Screen,Urine Not Detected (NotDetected); Benzodiazepines Screen,Urine Not Detected (NotDetected); Cocaine Screen,Urine Not Detected (NotDetected); Methadone Screen, Urine Not Detected (NotDetected); Opiate Screen,Urine Not Detected (NotDetected); Oxycodone Screen, Urine Not Detected (NotDetected); Phencyclidine Screen,Urine Not Detected (NotDetected); Tricyclic Antidepressant,Urine Not Detected (NotDetected); Urn Cannabinoid Scrn Detected (NotDetected)
[2022-03-15] MEDS ORDERED: MAG HYDROX/AL HYDROX/SIMETH 30 ML CUP PO PRN (16:51)
[2022-03-15] MEDS ORDERED: HALOPERIDOL LACTATE 5 MG/ML 1 ML VIAL IM PRN (16:51)
[2022-03-15] MEDS ORDERED: LORazepam 1 MG TAB PO PRN (16:51)
[2022-03-15] MEDS ORDERED: MAGNESIUM HYDROXIDE 2,400 MG/10 ML CUP PO PRN (16:51)
[2022-03-15] MEDS ORDERED: IBUPROFEN 600 MG TAB PO PRN (16:54)
[2022-03-15] MEDS ORDERED: LORazepam 1 MG/0.5 ML VIAL IM PRN (16:55)
[2022-03-15] MEDS ORDERED: haloperidoL 5 MG TAB PO PRN (16:56)
[2022-03-15] MEDS: MIRTAZAPINE 15 MG TAB PO SCH (20:11)
--- NOTE | 2022-03-16 02:36 | P.PN ---
Progress Note - Text Progress Note Date: 03/15/22 unable to evaluate patient due his unstable mental status at this time
[2022-03-16] MEDS: NICOTINE 14MG/24HR PATCH TRANSDERM SCH (08:35)
[2022-03-16] MEDS ORDERED: DULoxetine HCL 20 MG CAPSULE.DR PO SCH (09:00)
[2022-03-16 09:04] LABS: Basophils # (A) 0.1 k/uL (0-0.2); Basophils % (A) 1 %; Eosinophils # (A) 0.2 k/uL (0-0.7); Eosinophils % (A) 2 %; HCT 43.6 % (39.0-53.0); HGB 14.2 gm/dL (13.0-17.5); Lymphocytes # (A) 3.4 k/uL (1.0-4.8); Lymphocytes % (A) 38 %; MCH 31.3 pg (25.0-35.0); MCHC 32.7 g/dL (31.0-37.0); MCV 95.6 fL (80.0-100.0); Monocytes # (A) 0.4 k/uL (0-1.0); Monocytes % (A) 5 %; Neutrophils # (A) 4.7 k/uL (1.3-7.7); Neutrophils % (A) 53 %; Platelet Count 371 k/uL (150-450); RBC 4.56 m/uL (4.30-5.90); RDW 12.6 % (11.5-15.5); WBC 8.8 k/uL (3.8-10.6)
[2022-03-16 09:28] LABS: ALT 19 U/L (4-49); AST 23 U/L (17-59); African American GFR (CKD) 82 (>60 ml/min/1.73 sqM); Alkaline Phosphatase 48 U/L (38-126); Anion Gap 9 mmol/L; Blood Urea Nitrogen 15 mg/dL (9-20); Carbon Dioxide 27 mmol/L (22-30); Chloride 105 mmol/L (98-107); Glucose 78 mg/dL (74-99); Non-African American GFR(CKD) 71 (>60 ml/min/1.73 sqM); Potassium 4.8 mmol/L (3.5-5.1); Sodium 141 mmol/L (137-145); Total Bilirubin 0.4 mg/dL (0.2-1.3); Total Protein 6.4 g/dL (6.3-8.2)
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
[2022-03-16 15:27] LABS: LDL Cholesterol,Calculated 105.1 mg/dL (0.0-131.0)
[2022-03-16] MEDS: ACETAMINOPHEN TAB 325 MG TAB PO PRN (15:42)
[2022-03-16] MEDS: MIRTAZAPINE 15 MG TAB PO SCH (20:09)
[2022-03-16] MEDS: CYCLOBENZAPRINE 10 MG TAB PO PRN (20:09)
[2022-03-16] MEDS: DULoxetine HCL 20 MG CAPSULE.DR PO SCH (20:10)
--- NOTE | 2022-03-16 23:59 | P.PN ---
Progress Note - Text Progress Note Date: 03/16/22 patient refused medical evaluation again
[2022-03-17] MEDS: NICOTINE 14MG/24HR PATCH TRANSDERM SCH (08:05)
[2022-03-17] MEDS: DULoxetine HCL 20 MG CAPSULE.DR PO SCH (08:05)
--- NOTE | 2022-03-17 10:54 | P.PN ---
Progress Note - Text Progress Note Date: 03/17/22 Interval History: Patient was seen resting in bed and was directable and agreeable to speak with content writer in the office. Currently, the patient's primary concern is back pain. The patient maintains that he has been managing his back pain with [facility] however review the patient's [facility] reveals that he was only given a 3 day prescription a few weeks ago. This provider pressed the patient as to how he has been managing his pain at home. Despite being confronted that he only had a small prescription for this medication, the patient retains that that was the only way he was managing his pain. He continues to endorse suicidal ideation however is not reporting any plan or intention. He denies any homicidal ideation, intention, and/or plan. He is not reporting any auditory or visual hallucinations. He denies any paranoia or other delusions. He reports difficulty with sleep due to the pain. Mental Status Exam: General Appearance: Patient appears to be stated age is alert, directable, and cooperative. Behavior: Patient is calmly lying down in bed without any agitated behavior. Eye contact is appropriate. Speech: Patient's speech is fluent and nonpressured. Mood/Affect: Mood is "depressed", affect is euthymic with appropriate range. Suicidality/Homicidality: Patient endorses suicidal ideation. He denies any homicidal ideation. Perceptions: Patient denies any visual hallucinations and denies any auditory hallucinations Though content/process: His fixated on pain management and narcotic medications. Memory and concentration: AOX3, grossly intact for the purposes of this session Judgment and insight: Poor Vital Signs Temp 97.6 F 03/17/22 06:18 Pulse 50 L 03/17/22 06:18 Resp 16 03/17/22 06:18 BP 158/65 03/17/22 06:18 Pulse Ox 98 03/17/22 06:18 FiO2 Laboratory Results - Last 24 Hours 03/16/22 03/16/22 08:01 08:[address] Glu mg/dL 117 Hemoglobin A1c 5.7 Triglycerides 153.00 H Cholesterol 186.00 LDL Cholesterol, Calc 105.1 VLDL Cholesterol, Calc 30.60 HDL Cholesterol 50.30 Cholesterol/HDL Ratio 3.70 Assessment Major depressive disorder, recurrent, severe Nicotine dependence Plan: -Patient continues to meet criteria for inpatient psychiatric admission for symptom stabilization and safety. Patient has signed adult voluntary form and medication consent and was placed in patient's chart. -Medications: Increase Cymbalta to 30 mg by mouth twice a day for depression and neuropathic pain Remeron 15 mg by mouth at bedtime for depression/insomnia -When necessary Ativan and Haldol for agitation/aggression. -NRT - nicotine patch -SW on board for discharge planning. Encouraged the patient to participate in milieu.
[2022-03-17] MEDS: ACETAMINOPHEN TAB 325 MG TAB PO PRN (14:42)
[2022-03-17] MEDS: DULoxetine HCL 30 MG CAPSULE.DR PO SCH (19:58)
[2022-03-17] MEDS: MIRTAZAPINE 15 MG TAB PO SCH (19:58)
[2022-03-18 06:36] VITALS: RESP 14
[2022-03-18] MEDS: DULoxetine HCL 30 MG CAPSULE.DR PO SCH (07:58)
[2022-03-18] MEDS: NICOTINE 14MG/24HR PATCH TRANSDERM SCH (07:58)
--- NOTE | 2022-03-18 11:33 | P.PN ---
Progress Note - Text Progress Note Date: 03/18/22 Interval History: Patient was seen attending group and was directable and agreeable to speak with resume writer in the office. Currently, the patient has reported an improvement in his mood. He has been out of bed and participating in individual and milieu activities. He has been adherent with his medication is not reporting any significant side effects. He reports that he was able to receive a better night's sleep due to his roommate moving out. He does continue to express concern regarding his housing. The patient is otherwise not reporting any suicidal or homicidal ideation, intention, and/or plan. He is not reporting any auditory or visualizations. He denies any paranoia or other delusions. He reports that he had a fleeting suicidal thought this morning. Mental Status Exam: General Appearance: Patient appears to be stated age is alert, directable, and cooperative. Behavior: Patient is calmly lying down in bed without any agitated behavior. Eye contact is appropriate. Speech: Patient's speech is fluent and nonpressured. Mood/Affect: Mood is "feeling better," affect is euthymic with appropriate range. Suicidality/Homicidality: Patient reports that he had some suicidal thoughts in the morning harvest currently denying any homicidal or suicidal ideation. Perceptions: Patient denies any visual hallucinations and denies any auditory hallucinations Though content/process: Linear and logical in short conversation. Memory and concentration: AOX3, grossly intact for the purposes of this session Judgment and insight: Improving Vital Signs Temp 97.6 F 03/18/22 06:35 Pulse 47 L 03/18/22 06:35 Resp 14 03/18/22 06:35 BP 129/83 03/18/22 06:35 Pulse Ox 96 03/18/22 06:35 FiO2 Assessment Major depressive disorder, recurrent, severe Nicotine dependence Plan: -Patient continues to meet criteria for inpatient psychiatric admission for symptom stabilization and safety. Patient has signed adult voluntary form and medication consent and was placed in patient's chart. -Medications: Increase Cymbalta to 30 mg by mouth twice a day for depression and neuropathic pain Remeron 15 mg by mouth at bedtime for depression/insomnia -When necessary Ativan and Haldol for agitation/aggression. -NRT - nicotine patch -SW on board for discharge planning. Encouraged the patient to participate in milieu.
[2022-03-18] MEDS: ACETAMINOPHEN TAB 325 MG TAB PO PRN (17:12)
[2022-03-18] MEDS: CYCLOBENZAPRINE 10 MG TAB PO PRN (18:52)
[2022-03-18] MEDS: MIRTAZAPINE 15 MG TAB PO SCH (20:13)
[2022-03-18] MEDS ORDERED: DULoxetine HCL 60 MG CAPSULE.DR PO SCH (21:00)
[2022-03-19 06:54] VITALS: BP 122/73; PULSE 49; TEMP 97.7
[2022-03-19] MEDS: NICOTINE 14MG/24HR PATCH TRANSDERM SCH (07:45)
[2022-03-19] MEDS ORDERED: DULoxetine HCL 30 MG CAPSULE.DR PO SCH (09:00)
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
== END 2022-03-19 13:27 | disposition home or self-care (01) | DRG 885 ==
LOC: EC 11:50 → 3MHU 16:48
PROVIDERS: ADMIT Psychiatry & Neurology Psychiatry; ATTEND Psychiatry & Neurology Psychiatry
DX: F33.2 Major depressive disorder, recurrent severe without psychotic features (principal); R45.851 Suicidal ideations; F17.210 Nicotine dependence, cigarettes, uncomplicated; F20.9 Schizophrenia, unspecified; F31.9 Bipolar disorder, unspecified; F41.9 Anxiety disorder, unspecified; G47.00 Insomnia, unspecified; Z59.00 Homelessness unspecified; Z79.899 Other long term (current) drug therapy; Z87.820 Personal history of traumatic brain injury; Z87.828 Personal history of other (healed) physical injury and trauma; Z91.51 Personal history of suicidal behavior; Z20.822 Contact with and (suspected) exposure to COVID-19
CPT/HCPCS: 80053; 80061; 80306; 82075; 83036; 84443; 85025; 87635; 99285

== ENCOUNTER 2022-03-25 19:49 | Observation (INO) | payer BC, OTHER ==
[2022-03-25 21:40] LABS: Basophils % (A) 0 %; Eosinophils # (A) 0.1 k/uL (0-0.7); Eosinophils % (A) 1 %; HCT 37.3 % (39.0-53.0); HGB 12.8 gm/dL (13.0-17.5); Lymphocytes # (A) 2.7 k/uL (1.0-4.8); Lymphocytes % (A) 23 %; MCH 31.5 pg (25.0-35.0); MCHC 34.3 g/dL (31.0-37.0); MCV 91.8 fL (80.0-100.0); Mean Platelet Volume 7.7; Monocytes # (A) 0.5 k/uL (0-1.0); Monocytes % (A) 5 %; Neutrophils # (A) 8.4 k/uL (1.3-7.7); Neutrophils % (A) 70 %; Platelet Count 343 k/uL (150-450); RBC 4.07 m/uL (4.30-5.90); RDW 12.6 % (11.5-15.5); WBC 11.9 k/uL (3.8-10.6)
[2022-03-25 21:54] LABS: Acetaminophen <10.0 ug/mL; Alcohol <10 mg/dL; Magnesium 2.2 mg/dL (1.6-2.3); Phosphorus 3.6 mg/dL (2.5-4.5); Salicylate <1.0 mg/dL
[2022-03-25 21:55] LABS: Partial Thromboplastin Time 26.5 sec (22.0-30.0); Prothrombin Time 10.7 sec (9.0-12.0)
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
[2022-03-25 22:49] LABS: Glucose,Whole Blood 100 mg/dL (70-110)
[2022-03-25 23:03] LABS: Appearance,Urine Clear (Clear); Bilirubin,Urine Negative (Negative); Blood,Urine Small (Negative); Color,Urine Yellow; Glucose,Urine (UA) Negative (Negative); Ketones,Urine Negative (Negative); Leukocyte Esterase,Urine Trace (Negative); Mucus,Urine Rare /hpf; Nitrite,Urine Negative (Negative); Protein,Urine Negative (Negative); RBC,Urine 9 /hpf (0-5); Specific Gravity,Urine 1.016 (1.001-1.035); Urobilinogen,Urine <2.0 mg/dL (<2.0); WBC,Urine 8 /hpf (0-5)
[2022-03-25 23:05] LABS: ALT 17 U/L (4-49); AST 21 U/L (17-59); African American GFR (CKD) >90 (>60 ml/min/1.73 sqM); Alkaline Phosphatase 64 U/L (38-126); Anion Gap 10 mmol/L; Blood Urea Nitrogen 16 mg/dL (9-20); Calcium 8.9 mg/dL (8.4-10.2); Carbon Dioxide 23 mmol/L (22-30); Chloride 104 mmol/L (98-107); Glucose 94 mg/dL (74-99); Non-African American GFR(CKD) 81 (>60 ml/min/1.73 sqM); Potassium 3.7 mmol/L (3.5-5.1); Sodium 137 mmol/L (137-145); Total Bilirubin 0.5 mg/dL (0.2-1.3); Total Protein 6.5 g/dL (6.3-8.2)
[2022-03-25 23:13] LABS: Amphetamine Screen,Urine Detected (NotDetected); Barbiturate Screen,Urine Not Detected (NotDetected); Benzodiazepines Screen,Urine Not Detected (NotDetected); Cocaine Screen,Urine Not Detected (NotDetected); Methadone Screen, Urine Not Detected (NotDetected); Opiate Screen,Urine Not Detected (NotDetected); Oxycodone Screen, Urine Not Detected (NotDetected); Phencyclidine Screen,Urine Not Detected (NotDetected); Tricyclic Antidepressant,Urine Not Detected (NotDetected); Urn Cannabinoid Scrn Detected (NotDetected)
[2022-03-26 00:19] VITALS: RESP 16
[2022-03-26] MEDS ORDERED: NALOXONE 0.4 MG/ML 1 ML VIAL IV PRN (00:46)
[2022-03-26] MEDS ORDERED: NICOTINE 14MG/24HR PATCH TRANSDERM STA (02:36)
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
[2022-03-26] MEDS ORDERED: HEPARIN SODIUM,PORCINE/PF 5,000 UNIT/0.5 ML SYRINGE SQ SCH (08:00)
[2022-03-26 08:20] VITALS: BP 129/78; PULSE 86; TEMP 97.3
--- NOTE | 2022-03-26 11:20 | P.DS ---
Providers Date of admission: 03/26/22 03:53 Expected date of discharge: 03/26/22 Attending physician: Shital Rai MD Consults: 03/26/22 00:46 Consult Physician Urgent Consulting Provider: Rhett Eli Consult Reason/Comments: depression, suicide attempt Do you want consulting provider notified?: Yes Primary care physician: Stated None Hospital Course: Discharge Diagnosis: Acute Psychosis GERD Tobacco abuse [facility] Hospital Course: Patient is a 61 yo male with known a history of bipolar disorder, GERD, and closed head injury who presented to the hospital via EMS after an intentional overdose with felxeril. In the ER he underwent an extensive evaluation. He was mildly hypertensive on arrival with a BP of 151/99 which self corrected. Laboratory analysis showed WBC 11.9 and HgB 12.8, urine was positive for amphetaines and THC. He was observed and had been 24 hours from time of overdose. He was medically cleared, seen by psych, and discharged to the mental health unit. Patient seen and examined at bedside. He denies any pain, shortness of breath, nausea, and lightheadness and dizziness. Patient has a flight of ideas, can not concentrate on current situation, and is speaking nonsensically. General: nontoxic, no distress, appears at stated age Derm: warm, dry Head: atraumatic, normocephalic, symmetric Eyes: EOMI, no lid lag, anicteric sclera Mouth: no lip lesion, mucus membranes moist Cardiovascular: S1S2 reg, no murmur, positive posterior tibial pulse bilateral, Lungs: CTA bilateral, no rhonchi, no rales , no accessory muscle use Abdominal: soft, nontender to palpation, no guarding, no appreciable organomegaly Ext: no gross muscle atrophy, no edema, no contractures Neuro: CN II-XI grossly intact, no focal neuro deficits Psych: Alert, oriented to self and situation, pressured speech flight of ideas. A total of 25 minutes of time were spent preparing this complex discharge summary. Patient was discharged on 03/26/22. Patient Condition at Discharge: Good Plan - Discharge Summary New Discharge Prescriptions: Continue Nicotine 14Mg/24Hr Patch [Habitrol] 1 patch TRANSDERM DIRECTED Discontinued DULoxetine HCL [Cymbalta] 60 mg PO DIRECTED DULoxetine HCL [Cymbalta] 30 mg PO DIRECTED Mirtazapine [Remeron] 15 mg PO DIRECTED Discharge Medication List Nicotine 14Mg/24Hr Patch [Habitrol] 1 patch TRANSDERM DIRECTED 03/26/22 [History] Follow up Appointment(s)/Referral(s): None,Stated [Primary Care Provider] - 1-2 days Discharge Disposition: TRANSFER TO PSYCH HOSP/UNIT
[2022-03-26 12:55] LABS: HCT 39.6 % (39.6-50.0); HGB 12.5 g/dL (13.0-17.0); MCH 29.7 pg (27.0-32.0); MCHC 31.6 g/dL (32.0-37.0); MCV 94.1 fL (80.0-97.0); Mean Platelet Volume 10.1 fL (9.5-12.2); NRBC Per 100 WBC 0 /100 WBCS (0.0-0.0); Platelet Count 385 X 10*3/uL (140-440); RBC 4.21 X 10*6/uL (4.40-5.60); RDW 13.3 % (11.5-14.5); WBC 9.51 X 10*3/uL (4.50-10.00)
== END 2022-03-26 14:40 ==
LOC: EC 19:49 → 6NMEDSUR 03-26 03:53
PROVIDERS: ADMIT Internal Medicine; ATTEND Internal Medicine
DX: T48.1X2A Poisoning by skeletal muscle relaxants [neuromuscular blocking agents], intentional self-harm, initial encounter (principal); F23 Brief psychotic disorder; F31.9 Bipolar disorder, unspecified; F41.9 Anxiety disorder, unspecified; R03.0 Elevated blood-pressure reading, without diagnosis of hypertension; F12.10 Cannabis abuse, uncomplicated; F15.10 Other stimulant abuse, uncomplicated; D72.829 Elevated white blood cell count, unspecified; K21.9 Gastro-esophageal reflux disease without esophagitis; E07.9 Disorder of thyroid, unspecified; E66.01 Morbid (severe) obesity due to excess calories; Z68.33 Body mass index [BMI] 33.0-33.9, adult; Z63.5 Disruption of family by separation and divorce; F17.200 Nicotine dependence, unspecified, uncomplicated; Z20.822 Contact with and (suspected) exposure to COVID-19; Z79.899 Other long term (current) drug therapy; Z59.00 Homelessness unspecified; Z87.820 Personal history of traumatic brain injury; Z87.828 Personal history of other (healed) physical injury and trauma; Z90.49 Acquired absence of other specified parts of digestive tract; Z98.890 Other specified postprocedural states; Z83.49 Family history of other endocrine, nutritional and metabolic diseases; Z83.1 Family history of other infectious and parasitic diseases
CPT/HCPCS: 82075; 96372; 99285; 36415; 93005; 80053; 83735; 84100; 85025; 85027; 85610; 85730; 81001; 80306; 80143; 87635; 80179; G0378; G0480; S4990; J1644; 80320

== ENCOUNTER 2022-03-26 13:46 | Inpatient (IN) | payer MEDICAID, OTHER ==
[2022-03-26] MEDS ORDERED: hydrOXYzine HCL 50 MG/ML 1 ML VIAL IM PRN (14:04)
[2022-03-26] MEDS ORDERED: OLANZapine 10 MG VIAL IM PRN (14:04)
[2022-03-26] MEDS ORDERED: MAG HYDROX/AL HYDROX/SIMETH 30 ML CUP PO PRN (14:04)
[2022-03-26] MEDS ORDERED: OLANZapine 5 MG TAB PO PRN (14:04)
[2022-03-26] MEDS ORDERED: MAGNESIUM HYDROXIDE 2,400 MG/10 ML CUP PO PRN (14:04)
[2022-03-26] MEDS ORDERED: hydrOXYzine pamoate 25 MG CAP PO PRN (14:04)
[2022-03-26] MEDS: ACETAMINOPHEN TAB 325 MG TAB PO PRN (17:44)
[2022-03-26] MEDS: MIRTAZAPINE 15 MG TAB PO SCH (21:03)
[2022-03-26] MEDS: DULoxetine HCL 60 MG CAPSULE.DR PO SCH (21:03)
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
[2022-03-27] MEDS: NICOTINE 14MG/24HR PATCH TRANSDERM SCH (09:01)
[2022-03-27] MEDS: DULoxetine HCL 30 MG CAPSULE.DR PO SCH (09:02)
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
[2022-03-27] MEDS: PANTOPRAZOLE 40 MG TABLET PO SCH (13:03)
--- NOTE | 2022-03-27 15:30 | P.PN ---
Subjective Progress Note Date: 03/27/22 Patient is a 61 yo male with known a history of bipolar disorder, GERD, and closed head injury who presented to the hospital via EMS after an intentional overdose with felxeril. He has been admitted to the mental health unit. Patient seen and examined. He reports some heartburn and abdominal discomfort after his Flexeril overdose. Denies any nausea, vomiting diarrhea, chest pain, shortness of breath. He is concerned that he does not know how he got the Flexeril that he overdosed on. He states he wants to be discharged by the first because he has a wedding. General: nontoxic, no distress, appears at stated age Derm: warm, dry Head: atraumatic, normocephalic, symmetric Eyes: EOMI, no lid lag, anicteric sclera Mouth: no lip lesion, mucus membranes moist Cardiovascular: S1S2 reg, no murmur, positive posterior tibial pulse bilateral, Lungs: CTA bilateral, no rhonchi, no rales , no accessory muscle use Abdominal: soft, tender to palpation epigastric, no guarding, no appreciable organomegaly Ext: no gross muscle atrophy, no edema, no contractures Psych: Alert, oriented, appropriate affect Assessment/plan: Acid reflux versus gastritis secondary to overdose -Start PPI Polysubstance abuse Suicide attempt with overdose -Your psych management Objective - Vital Signs Vital signs: Vital Signs Temp 97.3 F L 03/27/22 04:50 Pulse 55 L 03/27/22 04:50 Resp 18 03/27/22 04:50 BP 97/57 03/27/22 04:50 Pulse Ox 98 03/27/22 04:50 FiO2 Intake & Output 03/26/22 03/27/22 03/27/22 18:59 06:59 18:59 Weight 87.498 kg
[2022-03-27] MEDS: MIRTAZAPINE 15 MG TAB PO SCH (20:08)
[2022-03-27] MEDS: DULoxetine HCL 60 MG CAPSULE.DR PO SCH (20:08)
[2022-03-28] MEDS: PANTOPRAZOLE 40 MG TABLET PO SCH (08:26)
[2022-03-28] MEDS: DULoxetine HCL 30 MG CAPSULE.DR PO SCH (08:26)
[2022-03-28] MEDS: NICOTINE 14MG/24HR PATCH TRANSDERM SCH (08:26)
--- NOTE | 2022-03-28 16:39 | P.PN ---
Subjective Progress Note Date: 03/28/22 IDENTIFYING DATA: Patient is a single, unemployed, homeless, 61-year-old male who presents to the hospital after intentional overdose on Flexeril. HPI: Patient presented to the hospital on 03/26/2022, presenting to the hospital after an intentional overdose on Flexeril. As per ED note, the patient presented to emergency department by EMS after reportedly taking fourteen 10 mg strength Flexeril at approximately 10 AM. The patient reported to the emergency physician that he took these because he no longer wanted to live as he and his recently . The patient was initially to be admitted on the medicine service however after being monitored he was cleared medically to be admitted to the psychiatric unit. The patient provides an inconsistent history to this provider. He maintains that he visualized a "21 pound cat yesterday and was wrestling it." He reports he is having difficulty with memory leading up to this hospialization. He is currently denying any suicidal or homicidal ideation, intention, and/or plan. He reports no auditory or visual hallucinations currently but remains fixated on this "cat" last night. The patient is not reporting any paranoia or other delusions otherwise. The patient was most recently admitted onto our psychiatric unit for suicidal ideation in the context of homelessness from 03/16/2022-03/19/2022. The patient did test positive for methamphetamines and marijuana prior to this admission. When confronted, the patient vehemently denies any methamphetamine use. PAST PSYCHIATRIC HISTORY: Patient states that he has been increasingly diagnosed as depression and not schizophrenia. His last discharge in a regimen of Cymbalta 60mg and Remeron. He also has previous trials with Zyprexa and Haldol. He was most recently hospitalized on the psychiatric unit a week prior to this admission. The context of this admission is similar as it involves his homelessness and recent breakup. The patient says that he was taking 60 of Cymbalta when he got depressed and had the urge to jump in front of a car. The patient has now 5 prior attempts at suicide. Current medications the Cymbalta min increased from 60-90 mg I assured him that that could be helpful as it is a threshold medicine and a small increase can make it go from not working to working but that he also needs to be faithful in taking it because she missed 2 doses a week and we'll work. He said that it does seem to be helping Mental status exam patient is little trouble staying on topic and following some simple lines of reasoning but overall he is oriented reasonable self-care came to talk readily gain strength are normal. No signs of responding to voices did not seem weepy slow or severely depressed Plan no change Objective - Vital Signs Vital signs: Vital Signs Temp 97.3 F L 03/27/22 04:50 Pulse 55 L 03/27/22 04:50 Resp 18 03/27/22 04:50 BP 97/57 03/27/22 04:50 Pulse Ox 98 03/27/22 04:50 FiO2
[2022-03-28] MEDS: ACETAMINOPHEN TAB 325 MG TAB PO PRN (18:36)
[2022-03-28] MEDS: DULoxetine HCL 60 MG CAPSULE.DR PO SCH (20:23)
[2022-03-28] MEDS: MIRTAZAPINE 15 MG TAB PO SCH (20:23)
[2022-03-29 07:09] VITALS: RESP 16
[2022-03-29] MEDS: NICOTINE 14MG/24HR PATCH TRANSDERM SCH (08:35)
[2022-03-29] MEDS: PANTOPRAZOLE 40 MG TABLET PO SCH (08:36)
[2022-03-29] MEDS: DULoxetine HCL 30 MG CAPSULE.DR PO SCH (08:36)
--- NOTE | 2022-03-29 08:37 | P.PN ---
Subjective Progress Note Date: 03/29/22 IDENTIFYING : Patient is a single, unemployed, homeless, 61-year-old male who presents to the hospital after intentional overdose on Flexeril. HPI: Patient presented to the hospital on 03/26/2022, presenting to the hospital after an intentional overdose on Flexeril. Subjective: He is currently denying any suicidal or homicidal ideation, intention, and/or plan. He reports no auditory or visual hallucinations currently . The patient is not reporting any paranoia or other delusions otherwise. The patient was most recently admitted onto our psychiatric unit for suicidal ideation in the context of homelessness from 03/16/2022-03/19/2022. The patient did test positive for methamphetamines and marijuana prior to this admission. When confronted, the patient vehemently denies any methamphetamine use. Diagnosis: Major depression recurrent moderate Current medications the Cymbalta min increased from 6090 mg. He said that it does seem to be helping. He gave an example of when the other patients were jostling to get their coffee first, normally he would've found is irritating, but now he is able to see it as somewhat funny and think through the airways going to get their coffee soon enough. So he says he thinks he is thinking better and is more calm Mental status exam patient: He seems to be doing better at staying on topic, he is oriented, has reasonable self-care, came to talk readily, gait and strength are normal. No signs of responding to voices did not seem weepy slow or severely depressed, good self-care, normal response times. Assessment he is tolerating the medicines and seeming to get some benefit tolerating. Plan no change continue with Cymbalta 90 mg Objective - Vital Signs Vital signs: Vital Signs Temp 97.3 F L 03/29/22 07:08 Pulse 53 L 03/29/22 07:08 Resp 16 03/29/22 07:08 BP 124/81 03/29/22 07:08 Pulse Ox 98 03/27/22 04:50 FiO2
[2022-03-29] MEDS: MIRTAZAPINE 15 MG TAB PO SCH (20:14)
[2022-03-29] MEDS: DULoxetine HCL 60 MG CAPSULE.DR PO SCH (20:15)
[2022-03-30 06:58] VITALS: BP 118/68; PULSE 46; TEMP 97.4
[2022-03-30] MEDS: DULoxetine HCL 30 MG CAPSULE.DR PO SCH (08:44)
[2022-03-30] MEDS: ACETAMINOPHEN TAB 325 MG TAB PO PRN (08:44)
[2022-03-30] MEDS: PANTOPRAZOLE 40 MG TABLET PO SCH (08:44)
[2022-03-30] MEDS: NICOTINE 14MG/24HR PATCH TRANSDERM SCH (08:44)
--- NOTE | 2022-03-30 11:33 | P.DS ---
Providers Date of admission: 03/26/22 14:40 Expected date of discharge: 03/30/22 Attending physician: Rhett Eli MD Consults: 03/26/22 14:04 Consult Physician Routine Consulting Provider: Ike Soliz Consult Reason/Comments: Medical H&P Do you want consulting provider notified?: Yes Primary care physician: Rhett Eli MD - Discharge Diagnosis(es) (1) Major depressive disorder Current Visit: Yes Status: Acute Priority: High (2) Malingering Current Visit: Yes Status: Acute Priority: High (3) Methamphetamine use disorder, moderate Current Visit: Yes Status: Chronic Priority: Medium (4) Nicotine dependence Current Visit: Yes Status: Chronic Priority: Medium Hospital Course: Admission HPI: Patient is a single, unemployed, homeless, 61-year-old male who presents to the hospital after intentional overdose on Flexeril. Patient presented to the hospital on 03/26/2022, presenting to the hospital after an intentional overdose on Flexeril. As per ED note, the patient presented to emergency department by EMS after reportedly taking fourteen 10 mg strength Flexeril at approximately 10 AM. The patient reported to the emergency physician that he took these because he no longer wanted to live as he and his recently . The patient was initially to be admitted on the medicine service however after being monitored he was cleared medically to be admitted to the psychiatric unit. The patient provides an inconsistent history to this provider. He maintains that he visualized a "21 pound cat yesterday and was wrestling it." He reports he is having difficulty with memory leading up to this hospialization. He is currently denying any suicidal or homicidal ideation, intention, and/or plan. He reports no auditory or visual hallucinations currently but remains fixated on this "cat" last night. The patient is not reporting any paranoia or other delusions otherwise. The patient was most recently admitted onto our psychiatric unit for suicidal ideation in the context of homelessness from 03/16/2022-03/19/2022. The patient did test positive for methamphetamines and marijuana prior to this admission. When confronted, the patient vehemently denies any methamphetamine use. Patient states that he has been increasingly diagnosed depression and schizophrenia. His last discharge in a regimen of Cymbalta and Remeron. He also has previous trials with Zyprexa and Haldol. He was most recently hospitalized on the psychiatric unit a week prior to this admission. The context of this admission is similar as it involves his homelessness and recent breakup. The patient has not followed up with any outpatient treatment. The patient has now 5 prior attempts at suicide. Hospital course: Upon admission to the unit patient was initially presenting as disorganized however appeared to be incongruent in regards to his psychiatric symptoms. The patient appeared to be presenting with inconsistent histories in the hopes for secondary gain. Furthermore, the patient did test positive for methamphetamines however vehemently denied any substance abuse. He was last admitted onto our psychiatric unit for suicidal ideation in the context of homelessness on 03/16/2022 and returned for further suicidal ideation and reports that he overdosed on Flexeril prior to this admission. The patient was started back on his medications of Cymbalta and Remeron. Over the course of hospitalization, the patient displayed euthymic and bright behavior when observed in the milieu. However, every time he was approached by this physician, the patient would suddenly act as if he was disoriented or expressed that he was extremely depressed. Despite this, the patient took care of his hygiene and grooming, attended groups, and was bright and sociable with peers. On the day of discharge, the patient is stating to this provider that he is experiencing "the effects of the overdose from the Flexeril." However, the patient was informed that his vitals were appropriate. He expresses that he is experiencing suicidal ideation with plan to walk in front of a truck. Confronting this patient with his inconsistent history as well as his presentation in the milieu is met with irritability and frustration. The patient then terminates the interview and he was subsequently discharged. As per weekend notes, the patient was noted to not endorse any suicidal or homicidal ideation. He is also reported "no signs of responding to voices and did not seem weepy slow or severely depressed." Mental status exam: General Appearance: Patient appears to be stated age is alert, pleasant, and cooperative. Patient is in no acute distress and has fair hygiene and grooming Behavior: Patient is calmly seated without any agitated behavior. Speech: Patient's speech is fluent and nonpressured. Mood/Affect: Patient reports their mood is "not good", affect is incongruent when observed in the milieu as he presents as bright Suicidality/Homicidality: Patient reports suicidal ideation however has been noted by the covering physician for the last 48 hours to deny any suicidal or homicidal ideation. Perceptions: Patient denies any auditory or visual hallucinations. Though content/process: There is no evidence of any delusional thought content and thought process is linear and goal-directed. Patient appears fixated on maintaining admission. Memory and concentration: AOX3, grossly intact for the purposes of this session. Can spell "WORLD" backwards correctly. Judgment and insight: Improved with guarded prognosis Impression: Major depressive disorder, recurrent, severe Nicotine Dependence Methamphetamine use disorder Malingering Plan: -Continue with discharge today as patient has improved and stabilized psychi atrically and is not currently an imminent threat to himself and/or others. Patient will remain at chronically elevated risk due to his homelessness. However, the patient appears to be angling for continued admission for secondary gain of housing. He displays inconsistent presentation in regards to his psychiatric symptoms that he has been endorsing. The context of his admission is solely around his housing. -Continue medications: Cymbalta 30 mg by mouth every morning and 60 mg by mouth daily at bedtime for depression Remeron 15 mg by mouth at bedtime for depression/insomnia -Patient was counseled on the need for medication compliance and appropriate follow-up at mental health and also primary care for medical issues. Patient verbalized understanding and agreed. -Social work to arrange for and conduct family meeting to ensure safety upon discharge and answer any questions/concerns. Social work also to arrange for patients follow up appointments with [facility] for psychiatric care along with follow up with primary care provider. -Patient counseled on abstaining from recreational drugs and marijuana and alcohol. Was informed/educated on the adverse effects on their physical and mental health. Patient verbally agreed and understood. -Patient was instructed to return to the hospital or seek immediate medical care if their psychiatric or medical symptoms do worsen or reoccur. -Psychoeducation and supportive therapy provided to patient. Risks and benefits of pharmacological treatment versus the risks and benefits of nontreatment weight and discussed. Informed consent discussion held. Common side effects of psychotropics discussed such as, but not limited to headache, GI disturbance, sexual dysfunction, movement disorders, sedation, and orthostatic hypotension. Life threatening and blackbox warnings of prescribed medications also discussed. Potential risks of operating a vehicle or heavy machinery discussed with patient at length. Advised on importance of compliance and a reliable and responsible manner. Patient advised to review FDA consumer labeling of all medications prior to taking. Patient verbalized understanding of potential risks, and agrees with current treatment plan. Patient advised to medically contact physician/emergency personnel if any acute changes in condition occur. Vital Signs Temp 97.4 F L 03/30/22 06:22 Pulse 46 L 03/30/22 06:22 Resp 16 03/30/22 06:22 BP 118/68 03/30/22 06:22 Pulse Ox 97 03/30/22 06:22 FiO2 Intake & Output 03/29/22 03/30/22 03/30/22 18:59 06:59 18:59 Weight 89.4 kg Allergies Allergy/AdvReac Type Severity Reaction Status Date / Time No Known Allergies Allergy Verified 03/26/22 09:23 Patient Condition at Discharge: Stable Plan - Discharge Summary Discharge Rx Participant: Yes New Discharge Prescriptions: New DULoxetine HCL [Cymbalta] 30 mg PO DAILY 30 Days cap DULoxetine HCL [Cymbalta] 60 mg PO HS 30 Days cap Mirtazapine [Remeron] 15 mg PO HS 30 Days tab Discontinued Nicotine 14Mg/24Hr Patch [Habitrol] 1 patch TRANSDERM DIRECTED Discharge Medication List DULoxetine HCL [Cymbalta] 30 mg PO DAILY 30 Days cap 03/30/22 [Rx] DULoxetine HCL [Cymbalta] 60 mg PO HS 30 Days cap 03/30/22 [Rx] Mirtazapine [Remeron] 15 mg PO HS 30 Days tab 03/30/22 [Rx] Follow up Appointment(s)/Referral(s): 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 Avoid the use of street drugs and alcohol. Take all medications as prescribed. When you are in need of refills on your medications please contact your medical provider and/or outpatient psychiatrist to have this done. Please go to scheduled outpatient appointment for aftercare treatment. If symptoms return or become worse, call the crisis line at and/or go to the nearest emergency room for evaluation Discharge Disposition: HOME SELF-CARE
== END 2022-03-30 12:08 | disposition home or self-care (01) | DRG 918 ==
LOC: 3MHU 14:40
PROVIDERS: ADMIT Psychiatry & Neurology Psychiatry; ATTEND Psychiatry & Neurology Psychiatry
DX: T48.1X2A Poisoning by skeletal muscle relaxants [neuromuscular blocking agents], intentional self-harm, initial encounter (principal); F15.20 Other stimulant dependence, uncomplicated; R45.851 Suicidal ideations; F12.10 Cannabis abuse, uncomplicated; Z71.6 Tobacco abuse counseling; Z71.51 Drug abuse counseling and surveillance of drug abuser; K21.9 Gastro-esophageal reflux disease without esophagitis; K29.70 Gastritis, unspecified, without bleeding; F17.210 Nicotine dependence, cigarettes, uncomplicated; F20.9 Schizophrenia, unspecified; F31.9 Bipolar disorder, unspecified; F41.9 Anxiety disorder, unspecified; G47.00 Insomnia, unspecified; Z56.0 Unemployment, unspecified; Z59.00 Homelessness unspecified; Z76.5 Malingerer [conscious simulation]; Z79.899 Other long term (current) drug therapy; Z87.820 Personal history of traumatic brain injury

== ENCOUNTER 2022-04-02 01:22 | Emergency (ER) | payer OTHER ==
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
[2022-04-02 03:08] VITALS: PULSE 80; TEMP 98
[2022-04-02 04:20] VITALS: BP 126/85; RESP 16
== END 2022-04-02 04:28 | disposition home or self-care (01) ==
LOC: EC 01:22
DX: I20.9 Angina pectoris, unspecified (principal); F15.10 Other stimulant abuse, uncomplicated; K21.9 Gastro-esophageal reflux disease without esophagitis; E07.9 Disorder of thyroid, unspecified; F41.9 Anxiety disorder, unspecified; F31.9 Bipolar disorder, unspecified; F17.200 Nicotine dependence, unspecified, uncomplicated; F12.90 Cannabis use, unspecified, uncomplicated; Z79.899 Other long term (current) drug therapy
CPT/HCPCS: 93005; 99285

== ENCOUNTER 2022-07-03 09:59 | Observation (INO) | payer OTHER ==
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
[2022-07-03 11:21] LABS: Basophils % (A) 0 %; Eosinophils # (A) 0.1 k/uL (0-0.7); Eosinophils % (A) 1 %; HCT 27.2 % (39.0-53.0); HGB 9.1 gm/dL (13.0-17.5); Lymphocytes # (A) 2.4 k/uL (1.0-4.8); Lymphocytes % (A) 25 %; MCH 30.5 pg (25.0-35.0); MCHC 33.6 g/dL (31.0-37.0); MCV 90.7 fL (80.0-100.0); Monocytes # (A) 0.4 k/uL (0-1.0); Monocytes % (A) 4 %; Neutrophils # (A) 6.7 k/uL (1.3-7.7); Neutrophils % (A) 68 %; Platelet Count 398 k/uL (150-450); RDW 14.7 % (11.5-15.5); WBC 9.8 k/uL (3.8-10.6)
[2022-07-03 11:32] LABS: Partial Thromboplastin Time 22.9 sec (22.0-30.0); Prothrombin Time 10.3 sec (9.0-12.0)
[2022-07-03 11:38] LABS: ALT 19 U/L (4-49); AST 23 U/L (17-59); African American GFR (CKD) >90 (>60 ml/min/1.73 sqM); Albumin 4.2 g/dL (3.5-5.0); Alkaline Phosphatase 53 U/L (38-126); Anion Gap 7 mmol/L; Blood Urea Nitrogen 18 mg/dL (9-20); Calcium 9.1 mg/dL (8.4-10.2); Carbon Dioxide 26 mmol/L (22-30); Chloride 105 mmol/L (98-107); Glucose 102 mg/dL (74-99); Magnesium 2.1 mg/dL (1.6-2.3); Non-African American GFR(CKD) 84 (>60 ml/min/1.73 sqM); Potassium 3.9 mmol/L (3.5-5.1); Sodium 138 mmol/L (137-145); Total Bilirubin 0.4 mg/dL (0.2-1.3); Total Protein 6.9 g/dL (6.3-8.2)
--- NOTE | 2022-07-03 12:29 | CT ---
EXAMINATION TYPE: CT angio abdomen pelvis DATE OF EXAM: 07/03/2022 COMPARISON: HISTORY: ABDOMINAL PAIN AND RECTAL BLEEDING. GI BLEED PROTOCOL CT DLP: 6.7 mGycm CONTRAST: CTA abdominal aorta with 3-D reconstruction is performed without Oral Contrast and with IV Contrast, patient injected with 100 mL of Isovue 370. Contrast CTA of the abdominal aorta was performed from the lung base through the base of the pelvis. 3-D reconstruction imaging obtained at a separate workstation. CONTRAST CT ABDOMEN AND PELVIS ABDOMINAL AORTA: No evidence for abdominal aortic aneurysm. No dissection. Iliac vessels are symmet jennifer and patent. LIVER/GB- No significant abnormality is seen. PANCREAS- No significant abnormality is seen. SPLEEN- No significant abnormality is seen. ADRENALS- No significant abnormality is seen. KIDNEYS/BLADDER- No significant abnormality is seen. BOWEL- No Significant abnormality GENITAL ORGANS: No gross abnormality seen. LYMPH NODES- No greater than 1cm abdominal or pelvic lymph nodes are appreciated. OSSEOUS STRUCTURES- No significant abnormality is seen. OTHER- No significant abnormality is seen. IMPRESSION- No significant abnormality seen to account for the patient's symptoms.
[2022-07-03] MEDS ORDERED: PANTOPRAZOLE 40 MG/10 ML VIAL IVP STA (12:55)
[2022-07-03] MEDS ORDERED: NALOXONE 0.4 MG/ML 1 ML VIAL IV PRN (13:13)
[2022-07-03] MEDS ORDERED: SODIUM CHLORIDE 0.9% 1,000 ML IV ONE ×2 (13:42→13:47)
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
[2022-07-03] MEDS: SODIUM CHLORIDE 0.9% 1,000 ML IV SCH ×2 (15:12→21:38)
[2022-07-03] MEDS ORDERED: MORPHINE SULFATE 2 MG/ML SYRINGE IVP PRN (16:39)
[2022-07-03 18:39] LABS: HCT 24.3 % (39.0-53.0); HGB 8.1 gm/dL (13.0-17.5); MCH 30.7 pg (25.0-35.0); MCHC 33.4 g/dL (31.0-37.0); Mean Platelet Volume 8.3; Platelet Count 303 k/uL (150-450); RBC 2.64 m/uL (4.30-5.90); RDW 14.2 % (11.5-15.5); WBC 8.5 k/uL (3.8-10.6)
[2022-07-03] MEDS: PANTOPRAZOLE 40 MG/10 ML VIAL IVP SCH (20:22)
[2022-07-04] MEDS: SODIUM CHLORIDE 0.9% 1,000 ML IV SCH ×3 (00:09→21:35)
[2022-07-04 00:28] LABS: HCT 23.8 % (39.0-53.0); HGB 7.8 gm/dL (13.0-17.5); MCH 30.8 pg (25.0-35.0); MCHC 32.9 g/dL (31.0-37.0); MCV 93.4 fL (80.0-100.0); Platelet Count 319 k/uL (150-450); RBC 2.55 m/uL (4.30-5.90); RDW 14.8 % (11.5-15.5); WBC 9.1 k/uL (3.8-10.6)
[2022-07-04 09:01] LABS: African American GFR (CKD) 85.4 (60.0-200.0); Anion Gap 7.2 mmol/L (10.00-18.00); BUN/Creat Ratio 8.5 Ratio (12.00-20.00); Blood Urea Nitrogen 9.2 mg/dL (9.0-27.0); Calcium 8.4 mg/dL (8.7-10.3); Carbon Dioxide 24.8 mmol/L (20.0-27.5); Non-African American GFR(CKD) 73.7 (60.0-200.0); Potassium 3.7 mmol/L (3.5-5.5)
[2022-07-04 09:02] LABS: Basophils # (A) 0.04 X 10*3/uL (0.00-0.10); Basophils % (A) 0.4 %; Eosinophils # (A) 0.19 X 10*3/uL (0.04-0.35); HCT 24.3 % (39.6-50.0); HGB 7.7 g/dL (13.0-17.0); Immature Grans, Automated 0.5 %; Lymphocytes # (A) 3.44 X 10*3/uL (0.90-5.00); Lymphocytes % (A) 35.7 %; MCH 30.6 pg (27.0-32.0); MCHC 31.7 g/dL (32.0-37.0); MCV 96.4 fL (80.0-97.0); Mean Platelet Volume 10.3 fL (9.5-12.2); Monocytes % (A) 6.2 %; NRBC Per 100 WBC 0 /100 WBCS (0.0-0.0); Neutrophils # (A) 5.32 X 10*3/uL (1.80-7.70); Neutrophils % (A) 55.2 %; Platelet Count 335 X 10*3/uL (140-440); RBC 2.52 X 10*6/uL (4.40-5.60); RDW 14.4 % (11.5-14.5); WBC 9.64 X 10*3/uL (4.50-10.00)
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
[2022-07-04] MEDS: PANTOPRAZOLE 40 MG/10 ML VIAL IVP SCH ×2 (10:22→21:34)
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
--- NOTE | 2022-07-04 19:29 | P.PN ---
Subjective Progress Note Date: 07/04/22 62-year-old male who is homeless. He reports having black stools for the last 3 days. He reports having 2 to 3 black bowel movements a day. He was nauseated with dry heaves a couple of days ago. He reports having a colonoscopy a year and a half ago and reports that it was normal. He denies any history stomach ulcers. Denies any NSAID use. Denies any blood thinners. He does have a history of closed head injury. Hemoglobin on admission was 9.1 stool for occult blood positive. Patient has been having hypotension. Surgical service consulted for GI bleed. Blood work completed in ED reveals a WBC of 9.8, hemoglobin of 9.1 and platelet count of 398, sodium 138, potassium 2.9, BUN/creatinine of 18/0.98 Objective - Vital Signs Vital signs: Vital Signs Temp 98.2 F 07/04/22 06:58 Pulse 52 L 07/04/22 06:58 Resp 18 07/04/22 06:58 BP 111/71 07/04/22 06:58 Pulse Ox 100 07/04/22 06:58 FiO2 Intake & Output 07/03/22 07/04/22 07/04/22 18:59 06:59 18:59 Intake Total 2760 Output Total 600 1100 Balance -600 1660 Weight 85.275 kg Intake: Intake, IV Titration 1560 Amount Sodium Chloride 0.9% 1, 1560 000 ml @ 130 mls/hr IV . Q7H42M [facility] Rx#:[id number] Oral 1200 Output: Urine 600 1100 Other: Voiding Method Toilet Urinal - Exam GENERAL: The patient is alert and oriented x3, not in any acute distress. Well developed, well nourished. HEENT: Pupils are round and equally reacting to light. EOMI. No scleral icterus. No conjunctival pallor. Normocephalic, atraumatic. No pharyngeal erythema. No thyromegaly. CARDIOVASCULAR: S1 and S2 present. No murmurs, rubs, or gallops. PULMONARY: Chest is clear to auscultation, no wheezing or crackles. ABDOMEN: Soft, nontender, nondistended, normoactive bowel sounds. No palpable organomegaly. MUSCULOSKELETAL: No joint swelling or deformity. EXTREMITIES: No cyanosis, clubbing, or pedal edema. NEUROLOGICAL: Gross neurological examination did not reveal any focal deficits. SKIN: No rashes. - Labs CBC & Chem 7: 07/04/22 05:36 07/04/22 05:36 Labs: Abnormal Lab Results - Last 24 Hours (Table) 07/03/22 07/03/22 07/03/22 Range/Units 11:05 11:05 18:24 RBC 3.00 L 2.64 L (4.30-5.90) m/uL Hgb 9.1 L 8.1 L (13.0-17.5) gm/dL Hct 27.2 L 24.3 L (39.0-53.0) % MCHC (32.0-37.0) g/dL Immature Gran # (0.00-0.04) X 10*3/uL Chloride (96-109) mmol/L Anion Gap (10.00-18.00) mmol/L BUN/Creatinine Ratio (12.00-20.00) Ratio Glucose 102 H (74-99) mg/dL Calcium (8.7-10.3) mg/dL 07/04/22 07/04/22 07/04/22 Range/Units 00:07 05:36 05:36 RBC 2.55 L 2.52 L (4.30-5.90) m/uL Hgb 7.8 L 7.7 L (13.0-17.5) gm/dL Hct 23.8 L 24.3 L (39.0-53.0) % MCHC 31.7 L (32.0-37.0) g/dL Immature Gran # 0.05 H (0.00-0.04) X 10*3/uL Chloride 111 H (96-109) mmol/L Anion Gap 7.20 L (10.00-18.00) mmol/L BUN/Creatinine Ratio 8.50 L (12.00-20.00) Ratio Glucose (74-99) mg/dL Calcium 8.4 L (8.7-10.3) mg/dL Assessment and Plan Assessment: 1. GI bleed - We will monitor H&H closely with plans to type and crossmatch and transfuse if hemoglobin is less than 7.0 - Patient has been placed on Protonix 40 mg IV every 12 hours - IV fluids in form of normal saline, 1 L - Consult general surgery 2. Acute blood loss anemia; monitor H&H closely and transfuse as needed 3. Numbness in both hands; we will consult neurology 4. Chronic back pain; not taking any medications at home; reports he hasn't been able to see a physician for quite sometime; has been placed on morphine 2 mg IV every 4 hours when necessary 5. Gastroesophageal reflux disease; IV Protonix as indicated above 6. Depression/bipolar disorder; currently not on any medications
[2022-07-04 20:03] LABS: HCT 23.7 % (39.0-53.0); HGB 7.8 gm/dL (13.0-17.5); MCH 30.8 pg (25.0-35.0); MCHC 33.2 g/dL (31.0-37.0); MCV 92.9 fL (80.0-100.0); Mean Platelet Volume 8.3; Platelet Count 322 k/uL (150-450); RBC 2.55 m/uL (4.30-5.90); RDW 14.6 % (11.5-15.5); WBC 8.3 k/uL (3.8-10.6)
[2022-07-05] MEDS: SODIUM CHLORIDE 0.9% 1,000 ML IV SCH ×3 (06:26→20:49)
[2022-07-05] MEDS: PANTOPRAZOLE 40 MG/10 ML VIAL IVP SCH ×2 (08:46→20:46)
[2022-07-05] MEDS ORDERED: PEG 3350 (236 GM/BTL) + LYTES 4,000 ML BOTTLE PO ONE (09:00)
[2022-07-05 10:42] LABS: HCT 24.4 % (39.6-50.0); HGB 7.6 g/dL (13.0-17.0); MCH 30.2 pg (27.0-32.0); MCHC 31.1 g/dL (32.0-37.0); MCV 96.8 fL (80.0-97.0); Mean Platelet Volume 10.4 fL (9.5-12.2); NRBC Per 100 WBC 0 /100 WBCS (0.0-0.0); Platelet Count 334 X 10*3/uL (140-440); RBC 2.52 X 10*6/uL (4.40-5.60); RDW 14.6 % (11.5-14.5); WBC 9.11 X 10*3/uL (4.50-10.00)
[2022-07-05 11:21] LABS: African American GFR (CKD) 83.5 (60.0-200.0); BUN/Creat Ratio 5.18 Ratio (12.00-20.00); Blood Urea Nitrogen 5.7 mg/dL (9.0-27.0); Calcium 8.2 mg/dL (8.7-10.3); Non-African American GFR(CKD) 72.1 (60.0-200.0); Potassium 4.4 mmol/L (3.5-5.5)
--- NOTE | 2022-07-05 11:49 | P.PN ---
Progress Note - Text Progress Note Date: 07/05/22 Patient has had no further signs of GI bleed. His he will was stable at 7.6. Patient be scheduled for EGD and colonoscopy in the a.m.
[2022-07-05 16:31] LABS: Amphetamine Screen,Urine Not Detected (NotDetected); Barbiturate Screen,Urine Not Detected (NotDetected); Benzodiazepines Screen,Urine Not Detected (NotDetected); Cocaine Screen,Urine Detected (NotDetected); Methadone Screen, Urine Not Detected (NotDetected); Opiate Screen,Urine Not Detected (NotDetected); Oxycodone Screen, Urine Not Detected (NotDetected); Phencyclidine Screen,Urine Not Detected (NotDetected); Tricyclic Antidepressant,Urine Not Detected (NotDetected); Urn Cannabinoid Scrn Detected (NotDetected)
--- NOTE | 2022-07-05 18:59 | P.PN ---
Subjective Progress Note Date: 07/05/22 62-year-old male who is homeless. He reports having black stools for the last 3 days. He reports having 2 to 3 black bowel movements a day. He was nauseated with dry heaves a couple of days ago. He reports having a colonoscopy a year and a half ago and reports that it was normal. He denies any history stomach ulcers. Denies any NSAID use. Denies any blood thinners. He does have a history of closed head injury. Hemoglobin on admission was 9.1 stool for occult blood positive. Patient has been having hypotension. Surgical service consulted for GI bleed. Blood work completed in ED reveals a WBC of 9.8, hemoglobin of 9.1 and platelet count of 398, sodium 138, potassium 2.9, BUN/creatinine of 18/0.98 24 hour interval change 07/05/2022 Patient is seen and evaluated ambulating in the room; denies any further complaints of diarrhea or abdominal pain Lab review shows a stable hemoglobin of 7.6; patient is scheduled for EGD and colonoscopy tomorrow morning Objective - Vital Signs Vital signs: Vital Signs Temp 98.2 F 07/05/22 06:53 Pulse 58 L 07/05/22 06:53 Resp 15 07/05/22 06:53 BP 106/69 07/05/22 06:53 Pulse Ox 97 07/05/22 06:53 FiO2 Intake & Output 07/04/22 07/05/22 07/05/22 18:59 06:59 18:59 Intake Total 2160 1560 Output Total 1600 1300 Balance 560 260 Intake: Intake, IV Titration 1560 Amount Sodium Chloride 0.9% 1, 1560 000 ml @ 130 mls/hr IV . Q7H42M [facility] Rx#:[id number] Oral 2160 Output: Urine 1600 1300 Other: Voiding Method Toilet Toilet Urinal Urinal # Bowel Movements 1 - Exam GENERAL: The patient is alert and oriented x3, not in any acute distress. Well developed, well nourished. HEENT: Pupils are round and equally reacting to light. EOMI. No scleral icterus. No conjunctival pallor. Normocephalic, atraumatic. No pharyngeal erythema. No thyromegaly. CARDIOVASCULAR: S1 and S2 present. No murmurs, rubs, or gallops. PULMONARY: Chest is clear to auscultation, no wheezing or crackles. ABDOMEN: Soft, nontender, nondistended, normoactive bowel sounds. No palpable organomegaly. MUSCULOSKELETAL: No joint swelling or deformity. EXTREMITIES: No cyanosis, clubbing, or pedal edema. NEUROLOGICAL: Gross neurological examination did not reveal any focal deficits. SKIN: No rashes. - Labs CBC & Chem 7: 07/05/22 06:10 07/05/22 06:10 Labs: Abnormal Lab Results - Last 24 Hours (Table) 07/04/22 07/05/22 Range/Units 19:51 06:10 RBC 2.55 L 2.52 L (4.30-5.90) m/uL Hgb 7.8 L 7.6 L (13.0-17.5) gm/dL Hct 23.7 L 24.4 L (39.0-53.0) % MCHC 31.1 L (32.0-37.0) g/dL RDW 14.6 H (11.5-14.5) % Assessment and Plan Assessment: 1. GI bleed - We will monitor H&H closely with plans to type and crossmatch and transfuse if hemoglobin is less than 7.0 - Patient has been placed on Protonix 40 mg IV every 12 hours - IV fluids in form of normal saline, 1 L - Consult general surgery 2. Acute blood loss anemia; monitor H&H closely and transfuse as needed 3. Numbness in both hands; we will consult neurology 4. Chronic back pain; not taking any medications at home; reports he hasn't been able to see a physician for quite sometime; has been placed on morphine 2 mg IV every 4 hours when necessary 5. Gastroesophageal reflux disease; IV Protonix as indicated above 6. Depression/bipolar disorder; currently not on any medications
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
[2022-07-06] MEDS: SODIUM CHLORIDE 0.9% 1,000 ML IV SCH ×3 (06:46→20:41)
[2022-07-06] MEDS: PANTOPRAZOLE 40 MG/10 ML VIAL IVP SCH ×2 (08:32→21:29)
[2022-07-06 08:40] LABS: HCT 25.5 % (39.6-50.0); HGB 8.1 g/dL (13.0-17.0); MCH 30.6 pg (27.0-32.0); MCHC 31.8 g/dL (32.0-37.0); MCV 96.2 fL (80.0-97.0); Mean Platelet Volume 10.2 fL (9.5-12.2); NRBC Per 100 WBC 0 /100 WBCS (0.0-0.0); Platelet Count 354 X 10*3/uL (140-440); RBC 2.65 X 10*6/uL (4.40-5.60); RDW 14.8 % (11.5-14.5)
[2022-07-06 09:01] LABS: % Iron Saturation 15.56 (15.00-50.00); African American GFR (CKD) 83.5 (60.0-200.0); BUN/Creat Ratio 3.09 Ratio (12.00-20.00); Blood Urea Nitrogen 3.4 mg/dL (9.0-27.0); Calcium 8.1 mg/dL (8.7-10.3); Non-African American GFR(CKD) 72.1 (60.0-200.0); Potassium 4.2 mmol/L (3.5-5.5)
[2022-07-06] MEDS: FOLIC ACID 1 MG TAB PO SCH (13:04)
[2022-07-06] MEDS: CYANOCOBALAMIN 1,000 MCG/ML 1 ML VIAL IM SCH (13:04)
[2022-07-06] MEDS ORDERED: LIDOCAINE 2% INJ 20 MG/ML (2 ML VIAL) ONE (13:36)
[2022-07-06] MEDS ORDERED: PROPOFOL 10 MG/ML 20 ML VIAL IV ONE (13:36)
[2022-07-06] MEDS ORDERED: GLYCOPYRROLATE 0.2 MG/ML 2 ML VIAL ONE (13:36)
[2022-07-06] MEDS ORDERED: IV FLUID CONTINUATION 1,000 ML IV ONE ×2 (13:43)
--- NOTE | 2022-07-06 14:04 | P.OP ---
Date of Procedure: 07/06/22 Preoperative Diagnosis: GI bleed Postoperative Diagnosis: Duodenitis Antral gastritis Sliding hiatal hernia Rectal polyp Procedure(s) Performed: EGD Colonoscopy Anesthesia: MAC Surgeon: Tony Chaudhari Pathology: other (Antrum, esophagus) Condition: stable Disposition: PACU Description of Procedure: Patient's placed on the endoscopy table in the lateral position. He received IV sedation. The gastro-/oropharynx passed in the esophagus and stomach. Scope was placed through the pylorus. The first and second portion of the duodenum appeared inflamed. A biopsies performed. Scope was then brought back the antrum this was mildly inflamed. A biopsies performed. Scope was then retroflexed and the remainder the stomach appeared normal. There was a sliding hiatal hernia seen. The GE junction was at 40 cm per the distal esophagus appeared normal. Proximal esophagus appeared normal. Scope was withdrawn. Next digital rectal exam was performed. This revealed a few internal and external hemorrhoids. The flexible colonoscope was then placed patient anus and passed throughout the entire colon. The ileocecal valve was visualized. The cecum, ascending and transverse colon appeared normal. The descending and sigmoid colon appeared normal. Scope summer back the rectum and a small sessile polyp was seen. This removed the cold forcep. Scope was withdrawn for patient. Presumed patient may have had bleeding from hemorrhoids or from gastritis.
[2022-07-06] MEDS: LEVOTHYROXINE 50 MCG TAB PO SCH (21:30)
[2022-07-07] MEDS: SODIUM CHLORIDE 0.9% 1,000 ML IV SCH ×2 (00:43→10:00)
[2022-07-07] MEDS: LEVOTHYROXINE 50 MCG TAB PO SCH (06:15)
[2022-07-07] MEDS: PANTOPRAZOLE 40 MG/10 ML VIAL IVP SCH (08:26)
[2022-07-07] MEDS: FOLIC ACID 1 MG TAB PO SCH (08:28)
[2022-07-07] MEDS: CYANOCOBALAMIN 1,000 MCG/ML 1 ML VIAL IM SCH (08:28)
--- NOTE | 2022-07-07 11:51 | P.PN ---
Subjective Progress Note Date: 07/06/22 Patient states he is feeling much better. The numbness of the left hand is mostly resolved, except the distal phalanx of the left index finger. Rest of the hand sensations are back to normal. No new problems. Objective - Vital Signs Vital signs: Vital Signs Temp 98.4 F 07/06/22 07:05 Pulse 52 L 07/06/22 07:05 Resp 16 07/06/22 07:05 BP 111/66 07/06/22 07:05 Pulse Ox 98 07/06/22 07:05 FiO2 Intake & Output 07/06/22 07/06/22 07/07/22 06:59 18:59 06:59 Intake Total 400 Output Total 900 1550 Balance -900 -1150 Intake: IV 200 Oral 200 Output: Urine 900 1550 Other: Voiding Method Toilet Toilet Urinal Urinal # Bowel Movements 4 1 - Exam No change. - Labs CBC & Chem 7: 07/07/22 09:16 07/06/22 04:30 Labs: Abnormal Lab Results - Last 24 Hours (Table) 07/05/22 07/05/22 07/06/22 Range/Units 06:10 06:10 04:30 RBC 2.65 L (4.40-5.60) X 10*6/uL Hgb 8.1 L (13.0-17.0) g/dL Hct 25.5 L (39.6-50.0) % MCHC 31.8 L (32.0-37.0) g/dL RDW 14.8 H (11.5-14.5) % Chloride (96-109) mmol/L Anion Gap (10.00-18.00) mmol/L BUN (9.0-27.0) mg/dL BUN/Creatinine Ratio (12.00-20.00) Ratio Calcium (8.7-10.3) mg/dL Iron (65-175) ug/dL Transferrin (204.0-354.0) mg/dL Vitamin B12 166.0 L (200.0-944.0) pg/mL Folate 2.60 L (4.40-31.00) ng/mL TSH 24.500 H (0.350-5.500) uIU/mL Free (T4) Reflex I 0.770 L (0.800-1.800) ng/dL 07/06/22 Range/Units 04:30 RBC (4.40-5.60) X 10*6/uL Hgb (13.0-17.0) g/dL Hct (39.6-50.0) % MCHC (32.0-37.0) g/dL RDW (11.5-14.5) % Chloride 111 H (96-109) mmol/L Anion Gap 7.00 L (10.00-18.00) mmol/L BUN 3.4 L (9.0-27.0) mg/dL BUN/Creatinine Ratio 3.09 L (12.00-20.00) Ratio Calcium 8.1 L (8.7-10.3) mg/dL Iron 37 L (65-175) ug/dL Transferrin 168.0 L (204.0-354.0) mg/dL Vitamin B12 (200.0-944.0) pg/mL Folate (4.40-31.00) ng/mL TSH (0.350-5.500) uIU/mL Free (T4) Reflex I (0.800-1.800) ng/dL Assessment and Plan Assessment: * New onset numbness of the entire left hand up to the wrist, except the middle finger and associated linear central region of the hand in the front and back. The distribution is functional or peripheral nerve distribution because of very sharply demarcated numbness in the hand. CVA very unlikely, as the distribution is not central in pattern. * History of substance abuse * GI bleed, status post colonoscopy. * B12 deficiency * Folate deficiency Plan: * Patient's numbness of the left hand is much improved. Only residual numbness of the tip of the left index finger. Symptoms appear peripheral in nature. * B12 166, folate 2.6. Patient will be started on B12 and folate replacement. B6 5 (5-50), and MMA 0.39 (borderline). * TSH is 24.5, free T4 0.77. IM to address hypothyroidism. * Urine drug screen positive for cocaine and marijuana. Patient now admitted that he snorted cocaine, did not smoke. * Patient underwent EGD and colonoscopy and was diagnosed with antral gastritis, sliding hiatal hernia and rectal polyp. * Because of antral gastritis, suggest patient stay on vitamin B12 injection monthly indefinitely. * Patient counseled about abstinence from polysubstance abuse. * Neurologically clear for discharge. Addendum 07/13/2022: Tried to contact patient about the results of vitamin B6 that came after discharge, and also to discuss about his B12 and folate replacements, but the only number listed is a wrong number.
--- NOTE | 2022-07-07 13:00 | P.PN ---
Subjective Progress Note Date: 07/07/22 CHIEF COMPLAINT: GI bleed HISTORY OF PRESENT ILLNESS: Patient is status post EGD and colonoscopy results showing duodenitis, antral gastritis, sliding hiatal hernia, rectal polyp and internal and external hemorrhoids. Patient has no new complaints. No further rectal bleeding. Hemoglobin stable at 8.1. Patient seen and examined with Dr. lara PHYSICAL EXAM: VITAL SIGNS: Reviewed. GENERAL: Well-developed in no acute distress. HEENT: No sclera icterus. Extraocular movements grossly intact. Moist buccal mucosa. Head is atraumatic, normocephalic. ABDOMEN: Soft. Nondistended. NEUROLOGIC: Alert and oriented. Cranial nerves II through XII grossly intact. ASSESSMENT: 1. Acute GI bleed now resolved. Possibly due to patient's gastritis 2. Status post EGD and colonoscopy showing duodenitis, antral gastritis, sliding hiatal hernia, rectal polyp and internal and external hemorrhoids PLAN: -Patient can be discharged from surgical standpoint -Continue PPI after discharge Physician [employer] note has been reviewed by physician. Signing provider agrees with the documented findings, assessment, and plan of care. Objective - Vital Signs Vital signs: Vital Signs Temp 98.6 F 07/07/22 07:30 Pulse 55 L 07/07/22 07:30 Resp 16 07/07/22 07:30 BP 153/76 07/07/22 07:30 Pulse Ox 98 07/07/22 07:30 FiO2 Intake & Output 07/06/22 07/07/22 07/07/22 18:59 06:59 18:59 Intake Total 400 Output Total 1550 1350 Balance -1150 -1350 Intake: IV 200 Oral 200 Output: Urine 1550 1350 Other: Voiding Method Toilet Toilet Urinal Urinal # Voids 5 # Bowel Movements 1 - Labs CBC & Chem 7: 07/06/22 04:30 07/06/22 04:30
[2022-07-07 14:29] LABS: HCT 28.9 % (39.6-50.0); HGB 9.1 g/dL (13.0-17.0); MCH 30.6 pg (27.0-32.0); MCHC 31.5 g/dL (32.0-37.0); MCV 97.3 fL (80.0-97.0); Mean Platelet Volume 10.5 fL (9.5-12.2); NRBC Per 100 WBC 0 /100 WBCS (0.0-0.0); Platelet Count 442 X 10*3/uL (140-440); RBC 2.97 X 10*6/uL (4.40-5.60); RDW 14.8 % (11.5-14.5); WBC 9.99 X 10*3/uL (4.50-10.00)
[2022-07-07 14:43] VITALS: BP 115/71; PULSE 52; RESP 15; TEMP 98.7
--- NOTE | 2022-07-07 23:58 | P.PN ---
Subjective 62-year-old male who is homeless. He reports having black stools for the last 3 days. He reports having 2 to 3 black bowel movements a day. He was nauseated with dry heaves a couple of days ago. He reports having a colonoscopy a year and a half ago and reports that it was normal. He denies any history stomach ulcers. Denies any NSAID use. Denies any blood thinners. He does have a history of closed head injury. Hemoglobin on admission was 9.1 stool for occult blood positive. Patient has been having hypotension. Surgical service cons ulted for GI bleed. Blood work completed in ED reveals a WBC of 9.8, hemoglobin of 9.1 and platelet count of 398, sodium 138, potassium 2.9, BUN/creatinine of 18/0.98 24 hour interval change 07/05/2022 Patient is seen and evaluated ambulating in the room; denies any further complaints of diarrhea or abdominal pain Lab review shows a stable hemoglobin of 7.6; patient is scheduled for EGD and colonoscopy tomorrow morning 07/07/2022 Patient is doing well generally, he was admitted for low hemoglobin and rectal bleeding, he had EGD today showing duodenitis and on anoscopy showing internal and external hemorrhoids No thyroid hormone, B12 and folate are been replaced Patient continued on IV fluids normal saline with 130 mL/h IV Protonix 40 mg twice daily Possible discharge in 24-48 hours if he keeps improving Objective - Vital Signs Vital signs: Vital Signs Temp 98.4 F 07/06/22 07:05 Pulse 52 L 07/06/22 07:05 Resp 16 07/06/22 07:05 BP 111/66 07/06/22 07:05 Pulse Ox 98 07/06/22 07:05 FiO2 Intake & Output 07/05/22 07/06/22 07/06/22 18:59 06:59 18:59 Output Total 1100 900 550 Balance -1100 -900 -550 Output: Urine 1100 900 550 Other: Voiding Method Toilet Toilet Toilet Urinal Urinal Urinal # Bowel Movements 2 4 - Exam GENERAL: The patient is alert and oriented x3, not in any acute distress. Well developed, well nourished. HEENT: Pupils are round and equally reacting to light. EOMI. No scleral icterus. No conjunctival pallor. Normocephalic, atraumatic. No pharyngeal erythema. No thyromegaly. CARDIOVASCULAR: S1 and S2 present. No murmurs, rubs, or gallops. PULMONARY: Chest is clear to auscultation, no wheezing or crackles. ABDOMEN: Soft, nontender, nondistended, normoactive bowel sounds. No palpable organomegaly. MUSCULOSKELETAL: No joint swelling or deformity. EXTREMITIES: No cyanosis, clubbing, or pedal edema. NEUROLOGICAL: Gross neurological examination did not reveal any focal deficits. SKIN: No rashes. no petechiae. - Labs CBC & Chem 7: 07/07/22 09:16 07/06/22 04:30 Labs: Abnormal Lab Results - Last 24 Hours (Table) 07/05/22 07/05/22 07/05/22 Range/Units 06:10 06:10 15:52 RBC (4.40-5.60) X 10*6/uL Hgb (13.0-17.0) g/dL Hct (39.6-50.0) % MCHC (32.0-37.0) g/dL RDW (11.5-14.5) % Chloride (96-109) mmol/L Anion Gap (10.00-18.00) mmol/L BUN (9.0-27.0) mg/dL BUN/Creatinine Ratio (12.00-20.00) Ratio Calcium (8.7-10.3) mg/dL Iron (65-175) ug/dL Transferrin (204.0-354.0) mg/dL Vitamin B12 166.0 L (200.0-944.0) pg/mL Folate 2.60 L (4.40-31.00) ng/mL TSH 24.500 H (0.350-5.500) uIU/mL Free (T4) Reflex I 0.770 L (0.800-1.800) ng/dL Urine Cocaine Screen Detected H (NotDetected) U Marijuana (THC) Screen Detected H (NotDetected) 07/06/22 07/06/22 Range/Units 04:30 04:30 RBC 2.65 L (4.40-5.60) X 10*6/uL Hgb 8.1 L (13.0-17.0) g/dL Hct 25.5 L (39.6-50.0) % MCHC 31.8 L (32.0-37.0) g/dL RDW 14.8 H (11.5-14.5) % Chloride 111 H (96-109) mmol/L Anion Gap 7.00 L (10.00-18.00) mmol/L BUN 3.4 L (9.0-27.0) mg/dL BUN/Creatinine Ratio 3.09 L (12.00-20.00) Ratio Calcium 8.1 L (8.7-10.3) mg/dL Iron 37 L (65-175) ug/dL Transferrin 168.0 L (204.0-354.0) mg/dL Vitamin B12 (200.0-944.0) pg/mL Folate (4.40-31.00) ng/mL TSH (0.350-5.500) uIU/mL Free (T4) Reflex I (0.800-1.800) ng/dL Urine Cocaine Screen (NotDetected) U Marijuana (THC) Screen (NotDetected) Assessment and Plan Assessment: 1. GI bleed - We will monitor H&H closely with plans to type and crossmatch and transfuse if hemoglobin is less than 7.0 - Patient has been placed on Protonix 40 mg IV every 12 hours - IV fluids in form of normal saline, 1 L - Consult general surgery 2. Acute blood loss anemia; monitor H&H closely and transfuse as needed 3. Numbness in both hands; we will consult neurology 4. Chronic back pain; not taking any medications at home; reports he hasn't been able to see a physician for quite sometime; has been placed on morphine 2 mg IV every 4 hours when necessary 5. Gastroesophageal reflux disease; IV Protonix as indicated above 6. Depression/bipolar disorder; currently not on any medications
--- NOTE | 2022-07-08 00:03 | P.DS ---
Providers Date of admission: 07/03/22 13:13 Attending physician: Merrill Darling MD Consults: 07/03/22 13:13 Consult Physician Urgent Consulting Provider: Tony Chaudhari Consult Reason/Comments: gi bleed Do you want consulting provider notified?: Already Contacted 07/04/22 19:32 Consult Physician Routine Consulting Provider: Eileen Joel Consult Reason/Comments: numbness B hands Do you want consulting provider notified?: Yes, Notify in am Primary care physician: Stated None Hospital Course: Diagnoses: Rectal bleeding secondary to internal and external hemorrhoids per colonoscopy on 07/06. EGD showing duodenitis which may be contributing factor as well. Hemoglobin is stable upon discharge Hypothyroidism, new onset. Replaced Flow vitamin B12 and folate been replaced Substance abuse with cocaine and marijuana, both positive in urine drug screen, patient was counseled to quit Hospital course: 62-year-old male who is homeless. He reports having black stools for the last 3 days. Patient presents with bleeding per rectum, surgical team evaluated the patient, he underwent EGD and colonoscopy on 07/06 showing duodenitis and internal and external hemorrhoids which most likely the source of bleeding. Hemoglobin remains stable 8.1 upon discharge and patient was instructed to follow up the biopsy results with the surgeon Dr. Inman on 07/17 and he agrees. Patient will be discharged on Protonix Low thyroid hormone, B12 and folate are been replaced and patient informed and he agrees Today patient is back to baseline and he was eager to be discharged from the hospital Patient was cleared for discharge by surgery team Problems and management plan were discussed with the patient and he verbalized understanding and acceptance Patient was found stable and can be discharged home in guarded prognosis however he needs follow-up as an outpatient. Patient was instructed to follow up with PCP within one week and patient agrees, patient states he has no PCP, he was advised to call his insurance provider to find a nearby 1 and he agrees Patient was instructed to follow up with the surgeon Dr. Inman on 07/17 and he agrees. He was instructed to follow-up the colon and duodenal biopsy results and he agrees again Neurologist also cleared the patient for discharge and was instructed to follow up with Dr. Hanley in one week and he agrees Physical exam Gen: patient is a AAOx3, no distress CVS: S1-S2, RRR, no murmur Lungs: B/L CTA, no wheezing Abdomen: soft, no distention, no tenderness, positive bowel sounds Extremity: no leg edema or induration Time spent more than 35 minutes Patient Condition at Discharge: Stable Plan - Discharge Summary Discharge Rx Participant: No New Discharge Prescriptions: New Pantoprazole [Protonix] 40 mg PO BID #60 tab Levothyroxine Sodium [Synthroid] 50 mcg PO DAILY@0630 #30 tab Folic Acid 1 mg PO DAILY #30 tab Cyanocobalamin [Vitamin B-12 Injection] 1,000 mcg IM DAILY #30 each Discharge Medication List Cyanocobalamin [Vitamin B-12 Injection] 1,000 mcg IM DAILY #30 each 07/07/22 [Rx] Folic Acid 1 mg PO DAILY #30 tab 07/07/22 [Rx] Levothyroxine Sodium [Synthroid] 50 mcg PO DAILY@0630 #30 tab 07/07/22 [Rx] Pantoprazole [Protonix] 40 mg PO BID #60 tab 07/07/22 [Rx] Follow up Appointment(s)/Referral(s): Sandra Hanley MD [Medical Doctor] - 1 Week (Neurology recommend EMG and nerve conduction of left upper extremity ) None,Stated [Primary Care Provider] - 1-2 days Tony Chaudhari MD [STAFF PHYSICIAN] - 07/17/22 9:45 am (General surgeon Please follow-up your stomach and colon Biopsies) Patient Instructions/Handouts: Gastrointestinal Bleeding (DC) Activity/Diet/Wound Care/Special Instructions: Heart healthy diet activity is restricted till you see your doctor - we recommend EMG and nerve conduction of left upper extremity - we recommend to follow up the biopsy from EGD including duodenal biopsy from colonoscopy including colon Biopsy and polyp Discharge Disposition: HOME SELF-CARE
== END 2022-07-07 18:27 | disposition home or self-care (01) ==
LOC: EC 09:59 → 4SSUR 13:13 → INTOOBSV 13:13 → 4SSUR 14:24 → UNDODISIN 07-07 18:27
PROVIDERS: ADMIT Internal Medicine; ATTEND Internal Medicine
PROC: 0DBP8ZX Excision of Rectum, Via Natural or Artificial Opening Endoscopic, Diagnostic (ICD-10-PCS; principal; 2022-07-06 13:55)
PROC: 0DB78ZX Excision of Stomach, Pylorus, Via Natural or Artificial Opening Endoscopic, Diagnostic (ICD-10-PCS; principal; 2022-07-06 13:55)
PROC: 0DB98ZX Excision of Duodenum, Via Natural or Artificial Opening Endoscopic, Diagnostic (ICD-10-PCS; principal; 2022-07-06 13:55)
DX: K29.81 Duodenitis with bleeding (principal); D62 Acute posthemorrhagic anemia; K29.71 Gastritis, unspecified, with bleeding; K64.8 Other hemorrhoids; K64.4 Residual hemorrhoidal skin tags; K62.1 Rectal polyp; K44.9 Diaphragmatic hernia without obstruction or gangrene; K21.9 Gastro-esophageal reflux disease without esophagitis; R20.0 Anesthesia of skin; E03.9 Hypothyroidism, unspecified; E53.8 Deficiency of other specified B group vitamins; I95.9 Hypotension, unspecified; F14.10 Cocaine abuse, uncomplicated; F31.9 Bipolar disorder, unspecified; F41.9 Anxiety disorder, unspecified; G89.29 Other chronic pain; M54.50 Low back pain, unspecified; F17.200 Nicotine dependence, unspecified, uncomplicated; Z79.890 Hormone replacement therapy; Z79.899 Other long term (current) drug therapy; Z87.898 Personal history of other specified conditions; Z59.00 Homelessness unspecified; Z87.828 Personal history of other (healed) physical injury and trauma; Z71.51 Drug abuse counseling and surveillance of drug abuser; Z87.11 Personal history of peptic ulcer disease; Z90.49 Acquired absence of other specified parts of digestive tract; Z98.890 Other specified postprocedural states; Z83.1 Family history of other infectious and parasitic diseases; Z83.49 Family history of other endocrine, nutritional and metabolic diseases
CPT/HCPCS: 96376 ×4; 96372; 96374; 99285; 36415; 93005; 84207; 83921; 84439; 88305; 80053; 80048 ×3; 84443; 82607; 82728; 82746; 83540; 83550; 83605; 83735; 84484; 85025 ×2; 85027 ×5; 85610; 85730; 82272; 80306; 74174; 45380; 43239; G0378 ×5; J3420 ×2; J2270; J2704; C9113 ×5; Q9967; J2001

== ENCOUNTER → 2023-03-26 | Outpatient (CLI) | payer OTHER ==
[2023-03-26 17:32] LABS: ALT 11 U/L (10-49); AST 15 U/L (14-35); Albumin 4.7 d/dL (3.8-4.9); Albumin/Globulin Ratio 1.88 Ratio (1.60-3.17); Alkaline Phosphatase 55 U/L (41-126); BUN/Creat Ratio 13.36 Ratio (12.00-20.00); Blood Urea Nitrogen 14.7 mg/dL (9.0-27.0); Calcium 10.2 mg/dL (8.7-10.3); Carbon Dioxide 20.2 mmol/L (21.6-31.8); Chloride 103 mmol/L (96-109); Chol/HDL Ratio 4.49 Ratio; Globulin 2.5 d/dL (1.6-3.3); Glucose 90 mg/dL (70-110); LDL Cholesterol,Calculated 165.9 mg/dL (0.0-131.0); Potassium 4.7 mmol/L (3.5-5.5); Sodium 142 mmol/L (135-145); T4, Free (Free Thyroxine) 0.93 ng/dL (0.80-1.80); Total Bilirubin 0.3 mg/dL (0.3-1.2); Total Protein 7.2 d/dL (6.2-8.2)
[2023-03-26 17:54] LABS: Basophils # (A) 0.09 X 10*3/uL (0.00-0.10); Basophils % (A) 0.9 %; Eosinophils # (A) 0.16 X 10*3/uL (0.04-0.35); Eosinophils % (A) 1.5 %; HCT 44.9 % (39.6-50.0); HGB 14.8 d/dL (13.0-17.0); Lymphocytes # (A) 3.72 X 10*3/uL (0.90-5.00); Lymphocytes % (A) 35.9 %; MCH 30.8 pg (27.0-32.0); MCV 93.5 FL (80.0-97.0); Mean Platelet Volume 10.6 FL (9.5-12.2); Monocytes % (A) 4.8 %; NRBC Per 100 WBC 0 X 10*3/uL (0.00-0.01); Neutrophils # (A) 5.86 X 10*3/uL (1.80-7.70); Neutrophils % (A) 56.6 %; Platelet Count 376 X 10*3/uL (140-440); RDW 13.4 % (11.5-14.5); WBC 10.36 X 10*3/uL (4.50-10.00)
== END | disposition home or self-care (01) ==
LOC: LABWHC1 11:37
PROVIDERS: ATTEND Internal Medicine
DX: I25.119 Atherosclerotic heart disease of native coronary artery with unspecified angina pectoris (principal); E03.9 Hypothyroidism, unspecified
CPT/HCPCS: 36415; 80053; 80061; 84439; 84443; 85025

== ENCOUNTER → 2023-10-20 | Outpatient (CLI) | payer OTHER ==
[2023-10-20 15:06] LABS: Basophils # (A) 0.05 X 10*3/uL (0.00-0.10); Basophils % (A) 0.5 %; Eosinophils # (A) 0.23 X 10*3/uL (0.04-0.35); Eosinophils % (A) 2.3 %; HCT 41.9 % (39.6-50.0); HGB 13.2 g/dL (13.0-17.0); Lymphocytes # (A) 3.84 X 10*3/uL (0.90-5.00); Lymphocytes % (A) 38.7 %; MCH 29.3 pg (27.0-32.0); MCHC 31.5 g/dL (32.0-37.0); MCV 93.1 FL (80.0-97.0); Mean Platelet Volume 10.8 FL (9.5-12.2); Monocytes # (A) 0.51 X 10*3/uL (0.20-1.00); Monocytes % (A) 5.1 %; NRBC Per 100 WBC 0 X 10*3/uL (0.00-0.01); Neutrophils # (A) 5.25 X 10*3/uL (1.80-7.70); Neutrophils % (A) 53.1 %; Platelet Count 322 X 10*3/uL (140-440); RDW 13.5 % (11.5-14.5); WBC 9.91 X 10*3/uL (4.50-10.00)
[2023-10-20 15:18] LABS: ALT 9 U/L (10-49); AST 16 U/L (14-35); Albumin 4.4 g/dL (3.8-4.9); Albumin/Globulin Ratio 1.91 Ratio (1.60-3.17); Alkaline Phosphatase 52 U/L (41-126); BUN/Creat Ratio 12.31 Ratio (12.00-20.00); Calcium 9.1 mg/dL (8.7-10.3); Carbon Dioxide 22.8 mmol/L (21.6-31.8); Chloride 108 mmol/L (96-109); Chol/HDL Ratio 4.53 Ratio; Globulin 2.3 g/dL (1.6-3.3); Glucose 96 mg/dL (70-110); LDL Cholesterol,Calculated 111.1 mg/dL (0.0-131.0); Sodium 143 mmol/L (135-145); T4, Free (Free Thyroxine) 0.63 ng/dL (0.80-1.80); Total Bilirubin <0.2 mg/dL (0.3-1.2); Total Protein 6.7 g/dL (6.2-8.2)
--- NOTE | 2023-10-21 17:55 | XR ---
EXAMINATION TYPE: XR lumbar spine 2 or 3V DATE OF EXAM: 10/20/2023 COMPARISON: 03/06/2022 HISTORY: Low back pain TECHNIQUE: 3 view lumbar spine FINDINGS: There are 5 lumbar-type vertebral bodies. Pedicles are intact. Disc heights are preserved. Vertebral body heights are preserved. Previous scoliosis appears diminished from comparison. There is normal alignment in the sagittal plane. IMPRESSION: 1. No acute osseous abnormality lumbar spine.
== END | disposition home or self-care (01) ==
LOC: RADXRMAIN 10:33
PROVIDERS: ATTEND Internal Medicine
DX: I25.119 Atherosclerotic heart disease of native coronary artery with unspecified angina pectoris (principal); M54.50 Low back pain, unspecified; E03.9 Hypothyroidism, unspecified; R42 Dizziness and giddiness
CPT/HCPCS: 72100; 80053; 80061; 84439; 84443; 85025